=== PATIENT | female | born 1965 | race Caucasian/White ===

== ENCOUNTER → 2018-06-28 08:30 | Outpatient (CLI) | payer OTHER, SELFPAY ==
--- NOTE | 2018-06-28 | DI.RAD.S_ITS ---
PROCEDURE: [place] SHOULDER INJECTION MR/CT RT INDICATIONS: RIGHT SHOULDER ROTATOR CUFF TEAR TECHNIQUE: The indications, alternatives, benefits, risks, and complications of the procedure were explained to the patient. Written informed consent was obtained and placed in the chart. The shoulder was examined fluoroscopically and a site for needle placement chosen for entry into the glenohumeral joint from an anterior approach. The skin was prepped and draped in a sterile fashion, and 1% lidocaine infiltrated from skin down to joint capsule. A spinal needle was inserted into the glenohumeral joint, and a small amount of iodinated contrast media injected to confirm intra-articular placement of the needle tip. This was followed by approximately 12 mL dilute solution of a gadolinium containing MR contrast agent. The needle was removed and a dressing was applied. The patient was given postprocedural instructions and sent to the MR suite for MR imaging. FINDINGS: A single fluoroscopic spot image demonstrates intra-articular location of injected iodinated contrast. IMPRESSION: Successful fluoroscopically guided administration of dilute Gadolinium solution into the shoulder joint for MR arthrogram. Dictated by: Sedrick Reich M.D. on 06/28/2018 at 11:08 Approved by: Sedrick Reich M.D. on 06/28/2018 at 11:08
--- NOTE | 2018-06-28 | DI.MRI.S_ITS ---
PROCEDURE: MR SHOULDER RT W CON INDICATIONS: RIGHT SHOULDER PAIN TECHNIQUE: After the administration of 12 mL of dilute intra-articular Gadolinium contrast, oblique coronal T1 and T2 spin echo with fat saturation, oblique sagittal T1 spin echo with and without fat saturation, oblique sagittal T2 fast spin echo with fat saturation, axial T1 spin echo with fat saturation through the shoulder. COMPARISON: [facility], , [place] SHOULDER INJECTION MR/CT RT, 06/28/2018, 9:03. FINDINGS: Image quality: Excellent. Rotator cuff: There is full-thickness tear of the supraspinatus tendon with contrast extravasation into the subacromial/subdeltoid bursa. The infraspinatus, and subscapularis tendons appear intact throughout. No rotator cuff muscle atrophy on sagittal images. Bones and bursae: No bone marrow contusions or fractures. Mild acromioclavicular joint degeneration. The acromion demonstrates conventional anatomy, without an os acromiale. Capsule and soft tissues: The labrum and glenohumeral ligaments appear intact. The long head of the biceps tendon demonstrates normal location and morphology. The rotator interval appears normal, without fibrosis. The coracohumeral ligament is of normal thickness. No intra-articular bodies. IMPRESSION: 1. Full thickness tear of the supraspinatus tendon. 2. No evidence for labral tear. 3. Mild acromioclavicular joint degeneration. Dictated by: Mahsa Sosa M.D. on 06/28/2018 at 10:29 Approved by: Mahsa Sosa M.D. on 06/28/2018 at 12:33
== END ==
PROVIDERS: Visit Provider Orthopaedic Surgery
DX: M25.511 Pain in right shoulder (principal); M75.121 Complete rotator cuff tear or rupture of right shoulder, not specified as traumatic; M19.011 Primary osteoarthritis, right shoulder
CPT/HCPCS: 23350; 73222; 77002

== ENCOUNTER 2020-08-25 19:14 | Emergency (ER) | payer OTHER, SELFPAY ==
[2020-08-25] VITALS (14 sets, daily range): BP systolic 122–160; BP diastolic 67–80; PULSE 73–83; RESP 14–19; O2SAT 96–100; BMI 24.1
--- NOTE | 2020-08-25 19:22 | DI.RAD.S_ITS ---
PROCEDURE: XR CHEST 1V INDICATIONS: chest pain TECHNIQUE: One view of the chest was acquired. COMPARISON: None. FINDINGS: Surgical changes and devices: None. Lungs and pleura: Lungs are clear. No pleural effusions or pneumothorax. Mediastinum: Mediastinal contours appear normal. Heart size is normal. Bones and chest wall: No suspicious bony lesions. Overlying soft tissues appear unremarkable. IMPRESSION: No evidence acute pulmonary process. Dictated by: Enrrique Escobar M.D. on 08/25/2020 at 19:40 Approved by: Enrrique Escobar M.D. on 08/25/2020 at 19:40
[2020-08-25 19:34] LABS: Add Manual Diff / Slide Review NO; Basophils Absolute Auto 100 /uL (0-100); Basophils Percent Auto 0.7 % (0-2); Eosinophils Absolute Auto 300 /uL (0-450); Eosinophils Percent Auto 3.3 % (2-4); Hematocrit 41.9 % (36-46); Lymphocytes Absolute Auto 2900 /uL (1100-4500); Lymphocytes Percent Auto 29.3 % (25-40); Mean Corpuscular HGB Conc 33.4 % (30-36); Mean Corpuscular Hemoglobin 29.3 PG (26-34); Mean Corpuscular Volume 87.7 fL (80-100); Monocytes Absolute Auto 1100 /uL (0-900); Monocytes Percent Auto 11.2 % (3-14); Neutrophils Absolute Auto 5500 /uL (1500-7000); Neutrophils Percent Auto 55.5 % (50-75); Platelet Count 275 X10^3/uL (150-400); Red Blood Cell Count 4.77 X10^6/uL (4.0-5.2); Red Cell Distribution Width 13.1 % (11.6-14.8); White Blood Cell Count 9.9 X10^3/uL (4.5-11.0)
--- NOTE | 2020-08-25 19:38 | ED.CHESTPAIN ---
HPI - Chest Pain General Chief Complaint: Chest Pain Stated Complaint: fast heart beat, dont feel good Time Seen by Provider: 08/25/20 19:15 Source: patient Mode of arrival: Ambulatory Limitations: no limitations History of Present Illness HPI narrative: 55F non smoker with history of PFO closure a few years ago presents with about 2 weeks of the sensation of rapid heart rate and feeling weird She's also had some episodes of chest tightness that seems to be linked to her increased heart rate. She denies recent travel, exposure to ill persons, new medications or dietary change. She denies fever, chills, nausea or vomiting. She's had no exertional symptoms and denies provocation, palliation, or radiation of the chest tightness. She is having no pain on arrival MD complaint: other Onset (ago): day(s) Duration: intermittent Pain location: substernal Severity: moderate Quality: tightness Pain radiation: none Relieving factors: nothing Exacerbating factors: nothing Treatments prior to arrival chest pain: none Related Data On Oral Contraceptives: No Allergies Allergy/AdvReac Type Severity Reaction Status Date / Time cephalexin [From Keflex] Allergy Verified 08/25/20 19:29 ciprofloxacin [From Cipro] Allergy Verified 08/25/20 19:29 hydromorphone [From Dilaudid] Allergy Verified 08/25/20 19:29 latex Allergy Verified 08/25/20 19:29 Penicillins Allergy Verified 08/25/20 19:29 sulfamethoxazole Allergy Verified 08/25/20 19:29 [From Bactrim] trimethoprim [From Bactrim] Allergy Verified 08/25/20 19:29 Review of Systems Constitutional Constitutional: Denies chills, Denies fatigue, Denies fever(s), Denies frequent falls, Reports lethargy and Denies weakness Eyes Eyes: Denies change in vision, Denies eye discharge, Denies irritation and Denies loss of vision ENT Ears, Nose, Mouth, and Throat: Denies change in voice, Denies dizziness, Denies neck pain, Denies sore throat and Denies throat swelling Cardiovascular Cardiovascular: Reports chest pain, Reports rapid heart rate, Denies irregular heart rhythm, Denies lightheadedness, Denies palpitations, Denies dyspnea, Denies dyspnea on exertion and Denies orthopnea Respiratory Respiratory: Denies cough, Denies dyspnea, Denies dyspnea on exertion and Denies wheezing Gastrointestinal Gastrointestinal: Denies abdominal pain, Denies change in bowel habits, Denies diarrhea, Denies nausea and Denies vomiting Musculoskeletal Musculoskeletal: Denies neck pain and Denies numbness Integumentary/Breasts Skin/Breast: Denies pruritus, Denies erythema, Denies rash and Denies wounds Neurologic Neurologic: Denies behavioral changes, Denies confusion, Denies dizziness, Denies frequent falls, Denies loss of vision, Denies numbness and Denies weakness Psychiatric Psychiatric: Denies anxiety, Denies behavioral changes, Denies confusion, Denies depression, Denies homicidal ideation and Denies suicidal ideation Endocrine Endocrine: Denies fatigue, Denies flushing and Denies palpitations Hematologic/Lymphatic Hematologic/Lymphatic: Denies easy bruising Allergic/Immunologic Allergic/Immunologic: Denies urticaria, Denies throat swelling and Denies wheezing Patient History Social History Smoking Status: Never smoker Smoking Status: Never smoker Substance Use Type: does not use Exam Narrative Exam Narrative: GENERAL: [55] year old patient appears stated age. Well-nourished, well-developed patient, in mild distress. HEAD: Atraumatic. Normocephalic. EYES: Pupils equal round and reactive. Extraocular motions intact. No scleral icterus. No injection or drainage. ENT: Nose without bleeding, purulent drainage. Throat without erythema, tonsillar hypertrophy or exudate. Airway patent. NECK: Trachea midline. Non tender CARDIOVASCULAR: Regular rate and rhythm without murmurs, gallops, or rubs. RESPIRATORY: Clear to auscultation. Breath sounds equal bilaterally. No wheezes, rales, or rhonchi. GASTROINTESTINAL: Abdomen soft, non-tender, nondistended. EXTREMITIES: No edema or joint tenderness. BACK: Nontender without deformity or crepitance. No flank tenderness. NEURO: AOx3. SKIN: No rash or erythema of visible areas Initial Vital Signs Initial Vital Signs: Vital Signs Blood Pressure 160/76 H 08/25/20 19:19 Course Orders Ordered: ED Orders 08/25/20 19:22 XR chest 1V Stat EKG-12 Lead Stat 08/25/20 19:30 Complete Blood Count AUTO DIFF Stat Comprehensive Metabolic Panel Stat D Dimer Stat Free T4, Direct Thyroxine Stat Lipase Stat NT-proBNP (BNP-Adult 18+) Stat Procalcitonin Stat TSH w/ Reflex to FT4 Stat Troponin & CK Cardiac Panel Stat 08/25/20 19:59 CT angio chest PE protocol Stat 08/25/20 21:53 EKG-12 Lead Stat 08/25/20 22:17 Troponin I Stat Discontinued Medications Aspirin (Aspirin 81 Mg Chew Tab) 324 mg PO NOW ONE Stop: 08/25/20 19:22 Last Admin: 08/25/20 19:50 Dose: 324 mg Documented by: LYSSA Sodium Chloride (Normal Saline 0.9%) 1,000 mls @ 150 mls/hr IV CONT STANLEY Last Infusion: 08/25/20 22:02 Dose: 0 mls/hr Documented by: Infusion: 08/25/20 20:59 Dose: 999 mls/hr Documented by: Infusion: 08/25/20 20:15 Dose: 0 mls/hr Documented by: Admin: 08/25/20 19:50 Dose: 150 mls/hr Documented by: LYSSA Potassium Chloride (Potassium Chloride 20 Meq/15 Ml Udc) 40 meq PO NOW ONE Stop: 08/25/20 20:00 Last Admin: 08/25/20 20:10 Dose: 40 meq Documented by: LYSSA Vital Signs Vital signs: Vital Signs - 8 hr 08/25/20 19:19 08/25/20 19:20 08/25/20 19:29 Pulse Rate 83 81 Respiratory Rate 17 18 Blood Pressure 160/76 H 160/76 H Pulse Oximetry 100 100 08/25/20 19:30 08/25/20 19:47 08/25/20 20:00 Pulse Rate 73 73 73 Respiratory Rate 18 14 Blood Pressure 132/76 122/72 Pulse Oximetry 100 100 99 08/25/20 20:41 08/25/20 21:00 08/25/20 21:30 Pulse Rate 80 77 80 Respiratory Rate 18 18 Blood Pressure Pulse Oximetry 96 99 97 08/25/20 22:00 08/25/20 22:04 08/25/20 22:30 Pulse Rate 80 80 77 Respiratory Rate 16 17 14 Blood Pressure 128/75 127/80 Pulse Oximetry 96 98 97 08/25/20 23:00 08/25/20 23:30 Pulse Rate 74 74 Respiratory Rate 14 19 Blood Pressure 125/76 142/67 H Pulse Oximetry 97 97 MDM - Chest Pain Lab Data Result diagrams: 08/25/20 19:30 08/25/20 19:30 Labs: Lab Results 08/25/20 08/25/20 08/25/20 Range/Units 19:30 19:30 19:30 WBC (4.5-11.0) X10^3/uL RBC (4.0-5.2) X10^6/uL Hgb (12.0-16.0) g/dL Hct (36-46) % MCV (80-100) fL MCH (26-34) PG MCHC (30-36) % RDW (11.6-14.8) % Plt Count (150-400) X10^3/uL Neut % (Auto) (50-75) % Lymph % (Auto) (25-40) % [place] % (Auto) (3-14) % Eos % (Auto) (2-4) % Baso % (Auto) (0-2) % Neut # (Auto) (6464-8016) /uL Lymph # (Auto) (1593-8319) /uL [place] # (Auto) (0-900) /uL Eos # (Auto) (0-450) /uL Baso # (Auto) (0-100) /uL D-Dimer 467 H (<230) ng/mL Sodium (137-145) mmol/L Potassium (3.4-5.1) mmol/L Chloride (98-107) mmol/L Carbon Dioxide (22-32) mmol/L BUN (7-17) mg/dL Creatinine (0.52-1.04) mg/dL Estimated GFR (>60) mL/min BUN/Creatinine Ratio (6-22) Glucose (70-100) mg/dL Calcium (8.4-10.2) mg/dL Total Bilirubin (0.2-1.3) mg/dL AST (14-36) IU/L ALT (<35) IU/L Alkaline Phosphatase (38-126) U/L Total Creatine Kinase (30-135) U/L CK-MB (CK-2) CK-MB (CK-2) Rel Index Troponin I (0.01-0.034) ng/mL NT-Pro-B Natriuret Pep 26 (<125) pg/mL Total Protein (6.3-8.2) g/dL Albumin (3.5-5.0) g/dL Globulin (1.7-4.1) g/dL Albumin/Globulin Ratio (1.0-2.8) Lipase (23-300) U/L Procalcitonin < 0.05 (<0.5) ng/mL TSH (0.47-4.68) uIU/mL Free T4 (0.78-2.19) ng/dL 08/25/20 08/25/20 08/25/20 Range/Units 19:30 19:30 19:30 WBC 9.9 (4.5-11.0) X10^3/uL RBC 4.77 (4.0-5.2) X10^6/uL Hgb 14.0 (12.0-16.0) g/dL Hct 41.9 (36-46) % MCV 87.7 (80-100) fL MCH 29.3 (26-34) PG MCHC 33.4 (30-36) % RDW 13.1 (11.6-14.8) % Plt Count 275 (150-400) X10^3/uL Neut % (Auto) 55.5 (50-75) % Lymph % (Auto) 29.3 (25-40) % [place] % (Auto) 11.2 (3-14) % Eos % (Auto) 3.3 (2-4) % Baso % (Auto) 0.7 (0-2) % Neut # (Auto) 5500 (3882-2852) /uL Lymph # (Auto) 2900 (5663-6929) /uL [place] # (Auto) 1100 H (0-900) /uL Eos # (Auto) 300 (0-450) /uL Baso # (Auto) 100 (0-100) /uL D-Dimer (<230) ng/mL Sodium 140 (137-145) mmol/L Potassium 3.2 L (3.4-5.1) mmol/L Chloride 101 (98-107) mmol/L Carbon Dioxide 34 H (22-32) mmol/L BUN 17 (7-17) mg/dL Creatinine 0.95 (0.52-1.04) mg/dL Estimated GFR > 60.0 (>60) mL/min BUN/Creatinine Ratio 17.9 (6-22) Glucose 85 (70-100) mg/dL Calcium 9.2 (8.4-10.2) mg/dL Total Bilirubin 0.3 (0.2-1.3) mg/dL AST 25 (14-36) IU/L ALT 22 (<35) IU/L Alkaline Phosphatase 84 (38-126) U/L Total Creatine Kinase 77 (30-135) U/L CK-MB (CK-2) TNP CK-MB (CK-2) Rel Index TNP Troponin I < 0.012 (0.01-0.034) ng/mL NT-Pro-B Natriuret Pep (<125) pg/mL Total Protein 7.9 (6.3-8.2) g/dL Albumin 4.3 (3.5-5.0) g/dL Globulin 3.6 (1.7-4.1) g/dL Albumin/Globulin Ratio 1.2 (1.0-2.8) Lipase 173 (23-300) U/L Procalcitonin (<0.5) ng/mL TSH 4.99 H (0.47-4.68) uIU/mL Free T4 0.93 (0.78-2.19) ng/dL /28/20 Range/Units 22:17 WBC (4.5-11.0) X10^3/uL RBC (4.0-5.2) X10^6/uL Hgb (12.0-16.0) g/dL Hct (36-46) % MCV (80-100) fL MCH (26-34) PG MCHC (30-36) % RDW (11.6-14.8) % Plt Count (150-400) X10^3/uL Neut % (Auto) (50-75) % Lymph % (Auto) (25-40) % [place] % (Auto) (3-14) % Eos % (Auto) (2-4) % Baso % (Auto) (0-2) % Neut # (Auto) (5225-2546) /uL Lymph # (Auto) (6104-6277) /uL [place] # (Auto) (0-900) /uL Eos # (Auto) (0-450) /uL Baso # (Auto) (0-100) /uL D-Dimer (<230) ng/mL Sodium (137-145) mmol/L Potassium (3.4-5.1) mmol/L Chloride (98-107) mmol/L Carbon Dioxide (22-32) mmol/L BUN (7-17) mg/dL Creatinine (0.52-1.04) mg/dL Estimated GFR (>60) mL/min BUN/Creatinine Ratio (6-22) Glucose (70-100) mg/dL Calcium (8.4-10.2) mg/dL Total Bilirubin (0.2-1.3) mg/dL AST (14-36) IU/L ALT (<35) IU/L Alkaline Phosphatase (38-126) U/L Total Creatine Kinase (30-135) U/L CK-MB (CK-2) CK-MB (CK-2) Rel Index Troponin I < 0.012 (0.01-0.034) ng/mL NT-Pro-B Natriuret Pep (<125) pg/mL Total Protein (6.3-8.2) g/dL Albumin (3.5-5.0) g/dL Globulin (1.7-4.1) g/dL Albumin/Globulin Ratio (1.0-2.8) Lipase (23-300) U/L Procalcitonin (<0.5) ng/mL TSH (0.47-4.68) uIU/mL Free T4 (0.78-2.19) ng/dL ECG Data Interpretation: EKG is normal sinus rhythm rate [72 ] and free of any signs of ischemia or ectopy. No ST segmental elevation or depression. No T wave inversions EKG 2. No change MDM Narrative Medical decision making narrative: Multiple etiologies for patient's symptoms considered including: Arrhythmia such as AFib, thought unlikely given lack of supporting evidence on EKG use or multiple hours of cardiac monitoring. Cardiac ischemia considered but thought unlikely given lack of exertional symptoms, risk factors, ischemia on EKG, multiple negative troponin. Pulmonary embolism considered but thought unlikely given lack of supporting evidence on CT angiogram. Patient feels completely at baseline after above-stated therapies raising the question of mild dehydration and low potassium contributing. Patient's symptoms improved over duration of stay with above-stated therapies. Findings and discharge diagnosis discussed with patient/family followed by verbalization of understanding Return precautions discussed with patient/family whom verbalize understanding. Discharge Plan Departure Patient Disposition: Home Clinical Impression: Atypical chest pain Instructions: DI for Atypical Chest Pain Activity Restrictions/Additional Instructions: *You have been diagnosed with [atypical chest pain and low potassium] *What to do: *Take medications as directed *Follow up with your primary care provider in 2-3 days, call for an appointment. Let them know you were seen in the Emergency Department and that we ask that you be seen in follow up *Return to ER if you should have any new, worsening or concerning symptoms Referrals: [facility] [Outside] [facility] [Outside]
[2020-08-25] MEDS: SODIUM CHLORIDE 0.9% 1,000 ML 150 ML IV (19:50)
[2020-08-25] MEDS: ASPIRIN 81 MG CHEW TAB 324 MG PO (19:50)
[2020-08-25 19:53] LABS: D Dimer 467 ng/mL (<230)
[2020-08-25 19:54] LABS: Alanine Aminotransferase 22 IU/L (<35); Albumin 4.3 g/dL (3.5-5.0); Albumin Globulin Ratio 1.2 (1.0-2.8); Alkaline Phosphatase 84 U/L (38-126); Aspartate Aminotransferase 25 IU/L (14-36); BUN Creatinine Ratio 17.9 (6-22); Bilirubin Total 0.3 mg/dL (0.2-1.3); Blood Urea Nitrogen 17 mg/dL (7-17); Calcium 9.2 mg/dL (8.4-10.2); Carbon Dioxide 34 mmol/L (22-32); Chloride 101 mmol/L (98-107); Creatine Kinase 77 U/L (30-135); Estimated Glomerular Filt Rate > 60.0 mL/min (>60); Globulin 3.6 g/dL (1.7-4.1); Glucose 85 mg/dL (70-100); HEMOLYSIS < 15 (0-50); Lipase 173 U/L (23-300); Potassium 3.2 mmol/L (3.4-5.1); Sodium 140 mmol/L (137-145); Total Protein 7.9 g/dL (6.3-8.2)
--- NOTE | 2020-08-25 19:59 | DI.CT.S_ITS ---
PROCEDURE: CT ANGIO CHEST PE PROTOCOL INDICATIONS: SOB, chest pressure, elevated DDimer TECHNIQUE: After the administration of intravenous contrast, 2 mm thick sections acquired from the pulmonary apices to the posterior costophrenic angles. 3-dimensional maximum intensity projection (MIP) coronal and sagittal reformats were then acquired through the thorax. For radiation dose reduction, the following was used: automated exposure control, adjustment of mA and/or kV according to patient size. COMPARISON: None. FINDINGS: Image quality: Excellent. Pulmonary arteries: Pulmonary arteries are normal in size, and demonstrate no intraluminal filling defects to suggest central pulmonary embolism. Lungs and pleura: Lungs are clear. 3 mm pleural-based nodule, adjacent to major fissure, right lower lobe. No pleural effusions or pneumothorax. Central and peripheral airways are patent. Mediastinum: Heart size is normal, without pericardial effusion. No mediastinal or hilar adenopathy. Thoracic aorta is normal in caliber and enhancement. Esophagus is normal in caliber, without hiatal hernia. Bones and chest wall: No suspicious bony lesions. Ribs and thoracic spine appear intact throughout. Thyroid gland is unremarkable as visualized. No axillary or supraclavicular adenopathy. Abdomen: Visualized upper abdominal solid organs appear normal in the early arterial phase of enhancement. IMPRESSION: 1. No evidence acute pulmonary emboli. 2. No evidence acute pulmonary process. 3. Incidental 3 mm pulmonary nodule, right lung. See chart below for follow-up recommendations. Fleischner Society criteria for SOLID lung nodule followup. Nodule size (mm)Low-risk patientHigh-risk patient<6 (single or multiple)No routine followup.Optional CT at 12 months. 6-8 (single or multiple)CT at 6-12 months, then optional CT at 18-24 mo.CT at 6-12 months, then CT at 18-24 months. >8 (single)CT at 3 months, PET-CT, or biopsy. Same as for low-risk pts. >8 (multiple)CT at 3-6 months, then optional CT at 18-24 mo.CT at 3-6 months, then CT at 18-24 months. Fleischner Society criteria for SUB-SOLID lung nodule followup. Solitary pure ground-glass nodules<6 mm (ground glass or part solid)No followup needed. 6 mm or larger (ground glass)CT at 6-12 months to confirm persistence, then CT every 2 years until 5 years.6 mm or larger (part solid)CT at 3-6 months to confirm persistence, then annual CT until 5 years if unchanged and solid component remains <6 mm. Multiple sub-solid nodules<6 mmCT at 3-6 months, then CT consider at 2 & 4 years for high risk patients. [address] at 3-6 months. Subsequent management based on most suspicious lesions. Recommendations do not apply to lung cancer screening, patients with immunosuppression, or patients with known primary cancer. Dictated by: Enrrique Escobar M.D. on 08/25/2020 at 20:51 Approved by: Enrrique Escobar M.D. on 08/25/2020 at 20:54
[2020-08-25 20:05] LABS: Troponin I < 0.012 ng/mL (0.01-0.034)
[2020-08-25] MEDS: POTASSIUM CHLORIDE 20 MEQ/15 ML UDC 40 MEQ PO (20:10)
[2020-08-25 20:16] LABS: NT-proBNP (BNP-Adult 18+) 26 pg/mL (<125)
[2020-08-25 20:37] LABS: TSH w/ Reflex to FT4 4.99 uIU/mL (0.47-4.68)
[2020-08-25 20:53] LABS: Procalcitonin < 0.05 ng/mL (<0.5)
[2020-08-25 21:15] LABS: Free T4, Direct Thyroxine 0.93 ng/dL (0.78-2.19)
[2020-08-25 22:52] LABS: Troponin I < 0.012 ng/mL (0.01-0.034)
== END 2020-08-25 23:44 | disposition home or self-care (01) ==
PROVIDERS: Emergency Provider Emergency Medicine
DX: R07.89 Other chest pain (principal)
CPT/HCPCS: 36415; 71045; 71275; 80053; 82550; 83690; 83880; 84145; 84439; 84443; 84484; 85025; 85379; 93005; 93010; 96360; 99281; 99284; Q9967

== ENCOUNTER → 2022-03-03 07:26 | Outpatient (CLI) | payer OTHER, SELFPAY ==
--- NOTE | 2022-03-03 | DI.CT.S_ITS ---
PROCEDURE: CT SINUS SCREEN WO CON INDICATIONS: FACIAL PAIN/HEADACHES/PANSINUSITIS TECHNIQUE: Noncontrast 3.0 mm axial images acquired from the frontal sinuses to the mid-sella, with coronal and sagittal reformats. For radiation dose reduction, the following was used: automated exposure control, adjustment of mA and/or kV according to patient size. COMPARISON: None. FINDINGS: Image quality: Excellent. Maxillary Sinuses: Postoperative change of the anterior [place] of the maxillary sinuses can be seen. Minimal mucosal thickening is seen within the inferior maxillary sinuses. Ethmoid Air Cells: No bony remodeling or destruction. Sinuses are clear. Sphenoid Sinuses: No bony remodeling or destruction. Sinuses are clear. Frontal Sinuses: No bony remodeling or destruction. Sinuses are clear. Ostiomeatal Complexes: Ostiomeatal complexes are patent. No Lia cells. Miscellaneous: Visualized intra-orbital contents are normal. No mary bullosa or paradoxical turbinate curvature. There is at least moderate rightward nasal septal deviation. Mandible reconstruction change is partially seen. Focal TMJ degenerative change can be seen. IMPRESSION: Minimal maxillary sinus mucosal thickening. Prior postoperative change, with plate and screw fixation of the anterior maxillary sinuses and partially visualized mandible reconstruction change. At least moderate rightward nasal septal deviation. Focal temporomandibular joint degenerative change can be seen. If clinically appropriate, please consider a follow-up dedicated TMJ protocol MRI with closed mouth and open mouth views (assuming that there is no contraindication). Dictated by: Abraham Mcguire M.D. on 03/03/2022 at 8:21 Approved by: Abraham Mcguire M.D. on 03/03/2022 at 8:23
== END ==
PROVIDERS: PCP Physician Assistant; Referring Provider Otolaryngology; Visit Provider Otolaryngology
DX: J32.4 Chronic pansinusitis (principal); G44.89 Other headache syndrome; J34.2 Deviated nasal septum
CPT/HCPCS: 70486

== ENCOUNTER → 2022-07-23 07:05 | Outpatient (CLI) | payer OTHER, SELFPAY ==
[2022-07-23 07:58] LABS: Add Manual Diff / Slide Review NO; Basophils Absolute Auto 100 /uL (0-100); Eosinophils Absolute Auto 300 /uL (0-450); Eosinophils Percent Auto 3.5 % (2-4); Hematocrit 36.2 % (36-46); Hemoglobin 11.8 g/dL (12.0-16.0); Lymphocytes Absolute Auto 3300 /uL (1100-4500); Lymphocytes Percent Auto 37.3 % (25-40); Mean Corpuscular HGB Conc 32.5 % (30-36); Mean Corpuscular Hemoglobin 24.6 PG (26-34); Mean Corpuscular Volume 75.6 fL (80-100); Monocytes Absolute Auto 1200 /uL (0-900); Monocytes Percent Auto 13.2 % (3-14); Neutrophils Absolute Auto 4000 /uL (1500-7000); Platelet Count 263 X10^3/uL (150-400); Red Blood Cell Count 4.79 X10^6/uL (4.0-5.2); Red Cell Distribution Width 15.6 % (11.6-14.8)
[2022-07-23 08:28] LABS: Alanine Aminotransferase 21 IU/L (<35); Albumin 3.8 g/dL (3.5-5.0); Albumin Globulin Ratio 1.2 (1.0-2.8); Alkaline Phosphatase 85 U/L (38-126); Amylase 89 U/L (30-110); Aspartate Aminotransferase 18 IU/L (14-36); BUN Creatinine Ratio 16.3 (6-22); Bilirubin Total 0.3 mg/dL (0.2-1.3); Blood Urea Nitrogen 17 mg/dL (7-17); Calcium 8.8 mg/dL (8.4-10.2); Carbon Dioxide 31 mmol/L (22-32); Chloride 99 mmol/L (98-107); Cholesterol 191 mg/dL (140-199); Estimated Glomerular Filt Rate > 60 mL/min (>60); Globulin 3.3 g/dL (1.7-4.1); Glucose 76 mg/dL (70-100); HDL Cholesterol 65 mg/dL (40-60); HEMOLYSIS < 15 (0-50); Iron 38 ug/dL (37-170); LDL Cholesterol Calculated 103 mg/dL (<100); Lipase 312 U/L (23-300); Potassium 3.5 mmol/L (3.4-5.1); Sodium 138 mmol/L (137-145); Total Protein 7.1 g/dL (6.3-8.2); Triglycerides 117 mg/dL (35-150)
[2022-07-23 08:39] LABS: Percent Iron Saturation 10 % (15-50); Total Iron Binding Capacity 392 ug/dL (265-497); Transferrin 276 mg/dL (206-381)
[2022-07-23 09:01] LABS: TSH w/ Reflex to FT4 4.59 uIU/mL (0.47-4.68)
[2022-07-23 09:04] LABS: Ferritin 5 ng/mL (11-264)
[2022-07-23 09:36] LABS: Folate 17.9 ng/mL (2.76-20.0); Vitamin B12 704 pg/mL (239-931)
== END ==
PROVIDERS: PCP Family Medicine; Referring Provider Family Medicine; Visit Provider Family Medicine
DX: R10.11 Right upper quadrant pain (principal); R19.5 Other fecal abnormalities; K21.9 Gastro-esophageal reflux disease without esophagitis; E56.9 Vitamin deficiency, unspecified; Z13.220 Encounter for screening for lipoid disorders; Z13.0 Encounter for screening for diseases of the blood and blood-forming organs and certain disorders involving the immune mechanism; E61.1 Iron deficiency; D64.9 Anemia, unspecified; Z13.29 Encounter for screening for other suspected endocrine disorder
CPT/HCPCS: 36415; 80053; 80061; 82150; 82306; 82607; 82728; 82746; 83540; 83550; 83690; 84443; 85025

== ENCOUNTER → 2022-08-04 09:20 | Outpatient (CLI) | payer OTHER, SELFPAY ==
--- NOTE | 2022-08-04 | DI.MG.S_ITS ---
BILATERAL DIGITAL SCREENING MAMMOGRAM 3D/2D WITH CAD: 08/04/2022 CLINICAL: Routine screening. Family history of breast cancer. Comparison is made to exams dated: 07/29/2021 mammogram, 07/23/2020 mammogram, 07/14/2019 mammogram, and 06/22/2018 mammogram - [facility]. Both breasts are heterogeneously dense, which may obscure small masses (category c / 51-75% glandular tissue). Current study was also evaluated with a Computer Aided Detection (CAD) system. There are benign post operative findings in the left breast. No significant masses, calcifications, or other findings are seen in either breast. There has been no significant interval change. IMPRESSION: BENIGN There is no mammographic evidence of malignancy. A 1 year screening mammogram is recommended. Based on Tyrer-Cuzick model (a risk assessment model), the patient's lifetime risk is 30.8% and her 10 year risk is 10.4%. If a patient has an elevated risk, a more comprehensive evaluation should be considered and/or a referral to a genetic counselor. The [place] [employer], [place] [employer], and NCCN Guidelines advise the consideration of Breast MRI as an adjunct to screening mammography in patients whose Lifetime risk to develop breast cancer is 20% or higher. This exam was interpreted at Station ID: [id number]. NOTE: For mammograms, a report in lay terms will be sent to the patient. Approximately 15% of breast malignancies will not be visualized mammographically. In the management of a palpable breast mass, a negative mammogram must not discourage biopsy of a clinically suspicious lesion. Electronically Signed By: Faizan henson/katie:08/04/2022 14:24:08 letter sent: Normal Exam ACR BI-RADS Category 2: Benign Finding(s) 3342F
== END ==
PROVIDERS: PCP Family Medicine; Referring Provider Family Medicine; Visit Provider Family Medicine
DX: Z12.31 Encounter for screening mammogram for malignant neoplasm of breast (principal); Z80.3 Family history of malignant neoplasm of breast
CPT/HCPCS: 77063; 77067

== ENCOUNTER → 2022-10-01 08:02 | Outpatient (CLI) | payer OTHER, SELFPAY ==
[2022-10-01 08:41] LABS: Add Manual Diff / Slide Review NO; Basophils Absolute Auto 100 /uL (0-100); Basophils Percent Auto 1.3 % (0-2); Eosinophils Absolute Auto 400 /uL (0-450); Eosinophils Percent Auto 6.3 % (2-4); Hematocrit 39.3 % (36-46); Hemoglobin 12.6 g/dL (12.0-16.0); Lymphocytes Absolute Auto 1600 /uL (1100-4500); Mean Corpuscular HGB Conc 32.1 % (30-36); Mean Corpuscular Hemoglobin 25.8 PG (26-34); Mean Corpuscular Volume 80.4 fL (80-100); Monocytes Absolute Auto 600 /uL (0-900); Monocytes Percent Auto 10.1 % (3-14); Neutrophils Absolute Auto 3200 /uL (1500-7000); Neutrophils Percent Auto 54.3 % (50-75); Platelet Count 299 X10^3/uL (150-400); Red Cell Distribution Width 17.6 % (11.6-14.8); White Blood Cell Count 5.8 X10^3/uL (4.5-11.0)
[2022-10-01 09:52] LABS: Ferritin 7 ng/mL (11-264)
== END ==
PROVIDERS: PCP Family Medicine; Referring Provider Family Medicine; Visit Provider Family Medicine
DX: D50.8 Other iron deficiency anemias (principal)
CPT/HCPCS: 36415; 82728; 85025

== ENCOUNTER → 2022-11-14 07:58 | Outpatient (CLI) | payer OTHER, SELFPAY ==
[2022-11-14 08:34] LABS: Add Manual Diff / Slide Review NO; Basophils Absolute Auto 100 /uL (0-100); Basophils Percent Auto 1.3 % (0-2); Eosinophils Absolute Auto 300 /uL (0-450); Eosinophils Percent Auto 5.2 % (2-4); Hematocrit 38.9 % (36-46); Hemoglobin 12.8 g/dL (12.0-16.0); Lymphocytes Absolute Auto 1500 /uL (1100-4500); Lymphocytes Percent Auto 29.7 % (25-40); Mean Corpuscular HGB Conc 32.9 % (30-36); Mean Corpuscular Hemoglobin 26.8 PG (26-34); Mean Corpuscular Volume 81.5 fL (80-100); Monocytes Absolute Auto 600 /uL (0-900); Monocytes Percent Auto 12.4 % (3-14); Neutrophils Absolute Auto 2500 /uL (1500-7000); Neutrophils Percent Auto 51.4 % (50-75); Platelet Count 259 X10^3/uL (150-400); Red Blood Cell Count 4.77 X10^6/uL (4.0-5.2); White Blood Cell Count 4.9 X10^3/uL (4.5-11.0)
[2022-11-14 08:56] LABS: Alanine Aminotransferase 17 IU/L (<35); Albumin Globulin Ratio 1.3 (1.0-2.8); Alkaline Phosphatase 80 U/L (38-126); Aspartate Aminotransferase 21 IU/L (14-36); BUN Creatinine Ratio 17.3 (6-22); Bilirubin Total 0.4 mg/dL (0.2-1.3); Blood Urea Nitrogen 17 mg/dL (7-17); Calcium 9.1 mg/dL (8.4-10.2); Carbon Dioxide 30 mmol/L (22-32); Chloride 100 mmol/L (98-107); Estimated Glomerular Filt Rate > 60 mL/min (>60); Globulin 3.2 g/dL (1.7-4.1); Glucose 81 mg/dL (70-100); HEMOLYSIS < 15 (0-50); Potassium 4.1 mmol/L (3.4-5.1); Sodium 137 mmol/L (137-145); Total Protein 7.2 g/dL (6.3-8.2)
== END ==
PROVIDERS: PCP Family Medicine; Referring Provider Internal Medicine Gastroenterology; Visit Provider Internal Medicine Gastroenterology
DX: D50.0 Iron deficiency anemia secondary to blood loss (chronic) (principal)
CPT/HCPCS: 36415; 80053; 85025

== ENCOUNTER 2023-01-26 15:53 | Emergency (ER) | payer OTHER, SELFPAY ==
--- NOTE | 2023-01-26 16:01 | DI.RAD.S_ITS ---
PROCEDURE: XR CHEST 1V INDICATIONS: chest pain TECHNIQUE: One view of the chest was acquired. COMPARISON: CT, CT ANGIO CHEST PE PROTOCOL, 08/25/2020, 20:24. [facility], CR, XR CHEST 1V, 08/25/2020, 19:24. FINDINGS: Surgical changes and devices: None. Lungs and pleura: Lungs are clear. No pleural effusions or pneumothorax. Mediastinum: Mediastinal contours appear normal. Heart size is normal. Bones and chest wall: No suspicious bony lesions. Overlying soft tissues appear unremarkable. IMPRESSION: No acute cardiopulmonary disease. Dictated by: Mahsa Sosa M.D. on 01/26/2023 at 16:27 Approved by: Mahsa Sosa M.D. on 01/26/2023 at 16:28
[2023-01-26 16:02] VITALS: BP 103/73; PULSE 80; RESP 17; TEMP 36.6; O2SAT 100; BMI 24.7
[2023-01-26 16:24] LABS: Add Manual Diff / Slide Review NO; Basophils Absolute Auto 100 /uL (0-100); Basophils Percent Auto 1.2 % (0-2); Eosinophils Absolute Auto 200 /uL (0-450); Eosinophils Percent Auto 2.4 % (2-4); Hematocrit 36.1 % (36-46); Hemoglobin 11.9 g/dL (12.0-16.0); Lymphocytes Absolute Auto 3000 /uL (1100-4500); Lymphocytes Percent Auto 31.9 % (25-40); Mean Corpuscular Hemoglobin 27.4 PG (26-34); Monocytes Absolute Auto 800 /uL (0-900); Neutrophils Absolute Auto 5400 /uL (1500-7000); Neutrophils Percent Auto 56.5 % (50-75); Platelet Count 294 X10^3/uL (150-400); Red Blood Cell Count 4.36 X10^6/uL (4.0-5.2); Red Cell Distribution Width 14.1 % (11.6-14.8); White Blood Cell Count 9.5 X10^3/uL (4.5-11.0)
[2023-01-26 16:34] LABS: PTT Partial Thromboplastin Tim 25 SECONDS (26-36)
[2023-01-26 16:40] LABS: Alanine Aminotransferase 18 IU/L (<35); Albumin 4.4 g/dL (3.5-5.0); Albumin Globulin Ratio 1.3 (1.0-2.8); Alkaline Phosphatase 95 U/L (38-126); Aspartate Aminotransferase 21 IU/L (14-36); BUN Creatinine Ratio 14.9 (6-22); Bilirubin Total 0.3 mg/dL (0.2-1.3); Blood Urea Nitrogen 18 mg/dL (7-17); Calcium 9.1 mg/dL (8.4-10.2); Carbon Dioxide 22 mmol/L (22-32); Chloride 106 mmol/L (98-107); Creatine Kinase 61 U/L (30-135); Estimated Glomerular Filt Rate 53 mL/min (>60); Globulin 3.5 g/dL (1.7-4.1); Glucose 103 mg/dL (70-100); HEMOLYSIS < 15 (0-50); Lipase 125 U/L (23-300); Magnesium 2.4 mg/dL (1.6-2.3); Potassium 3.6 mmol/L (3.4-5.1); Sodium 137 mmol/L (137-145); Total Protein 7.9 g/dL (6.3-8.2)
--- NOTE | 2023-01-26 16:45 | ED_ITS ---
HPI - Nausea/Vomiting/Diarrhea General Chief complaint: Nausea/Vomiting/Diarrhea Stated complaint: cough, chest tightness, syncope Time Seen by Provider: 01/26/23 16:17 Source: patient Mode of arrival: Wheelchair Limitations: no limitations History of Present Illness HPI Narrative: 57-year-old female. Not on anticoagulation. Was sent over from the walk-in clinic for evaluation of what sounds like a presyncopal episode. The patient went to the walk-in clinic because she states she just has not felt very well for the past week. She is had fatigue and a cough and chest tightness. She stated that while she was at the walk-in clinic she started to really not feel very well. Was somewhat lightheaded. No chest pain or shortness of breath or headache. She was told that she needed to lay down and her symptoms did not improve. At some point during this she did have an episode of diarrhea. Her has had a diarrheal illness for the past couple weeks although she has not had any until today. At the time of my evaluation she states she feels much better. Related Data Home Medications Medication Instructions Recorded Confirmed No Known Home Medications 01/26/23 01/26/23 Allergies Allergy/AdvReac Type Severity Reaction Status Date / Time cephalexin [From Keflex] Allergy Verified 01/26/23 15:27 ciprofloxacin [From Cipro] Allergy Verified 01/26/23 15:27 hydromorphone [From Dilaudid] Allergy Verified 01/26/23 15:27 latex Allergy Verified 01/26/23 15:27 Penicillins Allergy Verified 01/26/23 15:27 sulfamethoxazole Allergy Verified 01/26/23 15:27 [From Bactrim] trimethoprim [From Bactrim] Allergy Verified 01/26/23 15:27 Patient History Social History Smoking Status: Never smoker Smoking Status: Never smoker alcohol intake frequency: other Substance Use Type: does not use Exam Initial Vital Signs Initial Vital Signs: Vital Signs Temperature 98 F 01/26/23 16:02 Pulse Rate 80 01/26/23 16:02 Respiratory Rate 17 01/26/23 16:02 Blood Pressure 103/73 01/26/23 16:02 Pulse Oximetry 100 01/26/23 16:02 Oxygen Delivery Method Room Air 01/26/23 16:02 Const General: cooperative, comfortable and No ill appearing [facility] Head: normal to inspection and normocephalic Resp Effort & Inspection: normal respiratory effort Auscultation: clear to auscultation bilaterally Cardio Rate: regular rate Rhythm: regular rhythm Skin General: no rashes or lesions noted Neuro General: patient alert, patient awake and moves all extremities Extrem General: normal to inspection and capillary refill normal Course Orders Ordered: ED Orders 01/26/23 16:01 XR chest 1V Stat EKG-12 Lead Stat 01/26/23 16:10 Complete Blood Count AUTO DIFF Stat Comprehensive Metabolic Panel Stat Lipase Stat Magnesium Stat PTT Partial Thromboplastin Everardo Stat Prothrombin Time INR Stat Troponin & CK Cardiac Panel Stat 01/26/23 16:11 Respiratory Panel (Film Array) Stat 01/26/23 17:37 Ictotest Urine Stat Urine Microscopic Stat Discontinued Medications Sodium Chloride (Normal Saline 0.9%) 1,000 mls @ 1,000 mls/hr IV BOLUS ONE Stop: 01/26/23 17:00 Last Infusion: 01/26/23 17:39 Dose: 0 mls/hr Documented By: Admin: 01/26/23 16:47 Dose: 1,000 mls/hr Documented By: JUDY Vital Signs Vital signs: Vital Signs - 8 hr 01/26/23 16:02 01/26/23 17:15 Temperature 98 F Pulse Rate 80 72 Respiratory Rate 17 17 Blood Pressure 103/73 123/60 Pulse Oximetry 100 99 Oxygen Delivery Method Room Air Room Air MDM - Nausea/Vomiting/Diarrhea Lab Data Attestation: I reviewed the patient's lab results. 01/26/23 16:10 01/26/23 16:10 Labs: Lab Results 01/26/23 01/26/23 01/26/23 Range/Units 16:10 16:10 16:10 WBC 9.5 (4.5-11.0) X10^3/uL RBC 4.36 (4.0-5.2) X10^6/uL Hgb 11.9 L (12.0-16.0) g/dL Hct 36.1 (36-46) % MCV 83.0 (80-100) fL MCH 27.4 (26-34) PG MCHC 33.0 (30-36) % RDW 14.1 (11.6-14.8) % Plt Count 294 (150-400) X10^3/uL Neut % (Auto) 56.5 (50-75) % Lymph % (Auto) 31.9 (25-40) % [place] % (Auto) 8.0 (3-14) % Eos % (Auto) 2.4 (2-4) % Baso % (Auto) 1.2 (0-2) % Neut # (Auto) 5400 (1918-8791) /uL Lymph # (Auto) 3000 (5271-7959) /uL [place] # (Auto) 800 (0-900) /uL Eos # (Auto) 200 (0-450) /uL Baso # (Auto) 100 (0-100) /uL PT 12.0 (10.1-12.7) SECONDS INR 1.0 (0.9-1.3) APTT 25 L (26-36) SECONDS Sodium 137 (137-145) mmol/L Potassium 3.6 (3.4-5.1) mmol/L Chloride 106 (98-107) mmol/L Carbon Dioxide 22 (22-32) mmol/L BUN 18 H (7-17) mg/dL Creatinine 1.21 H (0.52-1.04) mg/dL Estimated GFR 53 L (>60) mL/min BUN/Creatinine Ratio 14.9 (6-22) Glucose 103 H (70-100) mg/dL Calcium 9.1 (8.4-10.2) mg/dL Magnesium 2.4 H (1.6-2.3) mg/dL Total Bilirubin 0.3 (0.2-1.3) mg/dL AST 21 (14-36) IU/L ALT 18 (<35) IU/L Alkaline Phosphatase 95 (38-126) U/L Total Creatine Kinase 61 (30-135) U/L CK-MB (CK-2) TNP CK-MB (CK-2) Rel Index TNP Troponin I < 0.012 (0.01-0.034) ng/mL Total Protein 7.9 (6.3-8.2) g/dL Albumin 4.4 (3.5-5.0) g/dL Globulin 3.5 (1.7-4.1) g/dL Albumin/Globulin Ratio 1.3 (1.0-2.8) Lipase 125 (23-300) U/L Chlamy pneumoniae PCR (Not Detect) Adenovirus (PCR) (Not Detect) B. pertussis DNA (PCR) (Not Detecte) B.parapertussis DNA PCR (Not Detecte) Coronavirus OC43 (PCR) (Not Detect) Coronavirus HKU1 (PCR) (Not Detect) Coronavirus 229E (PCR) (Not Detect) SARS-CoV-2 (PCR) (Not Detecte) Coronavirus NL63 (PCR) (Not Detect) Human Metapneumovir PCR (Not Detect) Influenza Type A (PCR) (Not Detect) Influenza Type B (PCR) (Not Detect) M. pneumoniae (PCR) (Not Detect) Parainfluenza 1 (PCR) (Not Detect) Parainfluenza 2 (PCR) (Not Detect) Parainfluenza 3 (PCR) (Not Detect) Parainfluenza 4 (PCR) (Not Detect) RSV (PCR) (Not Detect) Entero/Rhino (PCR) (Not Detect) 01/26/23 Range/Units 16:11 WBC (4.5-11.0) X10^3/uL RBC (4.0-5.2) X10^6/uL Hgb (12.0-16.0) g/dL Hct (36-46) % MCV (80-100) fL MCH (26-34) PG MCHC (30-36) % RDW (11.6-14.8) % Plt Count (150-400) X10^3/uL Neut % (Auto) (50-75) % Lymph % (Auto) (25-40) % [place] % (Auto) (3-14) % Eos % (Auto) (2-4) % Baso % (Auto) (0-2) % Neut # (Auto) (3438-3186) /uL Lymph # (Auto) (4290-3632) /uL [place] # (Auto) (0-900) /uL Eos # (Auto) (0-450) /uL Baso # (Auto) (0-100) /uL PT (10.1-12.7) SECONDS INR (0.9-1.3) APTT (26-36) SECONDS Sodium (137-145) mmol/L Potassium (3.4-5.1) mmol/L Chloride (98-107) mmol/L Carbon Dioxide (22-32) mmol/L BUN (7-17) mg/dL Creatinine (0.52-1.04) mg/dL Estimated GFR (>60) mL/min BUN/Creatinine Ratio (6-22) Glucose (70-100) mg/dL Calcium (8.4-10.2) mg/dL Magnesium (1.6-2.3) mg/dL Total Bilirubin (0.2-1.3) mg/dL AST (14-36) IU/L ALT (<35) IU/L Alkaline Phosphatase (38-126) U/L Total Creatine Kinase (30-135) U/L CK-MB (CK-2) CK-MB (CK-2) Rel Index Troponin I (0.01-0.034) ng/mL Total Protein (6.3-8.2) g/dL Albumin (3.5-5.0) g/dL Globulin (1.7-4.1) g/dL Albumin/Globulin Ratio (1.0-2.8) Lipase (23-300) U/L Chlamy pneumoniae PCR Not detected (Not Detect) Adenovirus (PCR) Not detected (Not Detect) B. pertussis DNA (PCR) Not detected (Not Detecte) B.parapertussis DNA PCR Not detected (Not Detecte) Coronavirus OC43 (PCR) Not detected (Not Detect) Coronavirus HKU1 (PCR) Not detected (Not Detect) Coronavirus 229E (PCR) Not detected (Not Detect) SARS-CoV-2 (PCR) Not detected (Not Detecte) Coronavirus NL63 (PCR) Not detected (Not Detect) Human Metapneumovir PCR Not detected (Not Detect) Influenza Type A (PCR) Not detected (Not Detect) Influenza Type B (PCR) Not detected (Not Detect) M. pneumoniae (PCR) Not detected (Not Detect) Parainfluenza 1 (PCR) Not detected (Not Detect) Parainfluenza 2 (PCR) Not detected (Not Detect) Parainfluenza 3 (PCR) Not detected (Not Detect) Parainfluenza 4 (PCR) Not detected (Not Detect) RSV (PCR) Not detected (Not Detect) Entero/Rhino (PCR) Detected H (Not Detect) Urine Dip Bedside Urine Glucose Negative Bedside Urine Bilirubin ++ 2 Bedside Urine Ketone - Negative Urine Specific [place] 1.025 Bedside Urine Occult Blood +/- Bedside Urine pH 6.0 Bedside Urine Protein +/- 15 Bedside Urine Urobilinogen - Negative Bedside Urine Nitrite - Negative Bedside Urine Leukocytes - Negative Esterase ECG Data Attestation: I personally reviewed and interpreted this ECG as follows: Interpretation: Sinus rhythm Ventricular rate is 66 Normal axis Normal QRS Normal QTC No ST T wave changes MDM Narrative Medical decision making narrative: Patient states she does feel better after the fluids. She is positive for rhino virus and this does explain the symptoms that she is had for the past couple days. There was no indication for any antibiotics. She did have 1 episode of diarrhea over the walk-in clinic and I suspect that this is what was causing her to have this described presyncopal episode. Her has had a diarrheal illness over the past couple days. Did discuss this as well. Will discharge patient home. She is not having any nausea. She was given return precautions. She expressed understanding and agreement with plan. Discharge Plan Departure Patient Disposition: Home Clinical Impression: Rhinovirus Instructions: Diarrhea, DI for Viral Upper Respiratory Infection -- Adult Activity Restrictions/Additional Instructions: Recommend that you continue to take all of your medications as directed. Be sure that you were increasing your fluid intake. Return to the emergency department for any new or worsening symptoms. Prescriptions: No Action No Known Home Medications Referrals: Bailey Gonzales ARNP [Primary Care Provider] - Stand Alone Forms: Patient Portal/API
[2023-01-26] MEDS: SODIUM CHLORIDE 0.9% 1,000 ML 1000 ML IV (16:47)
[2023-01-26 16:51] LABS: Troponin I < 0.012 ng/mL (0.01-0.034)
[2023-01-26 17:15] VITALS: BP 123/60; PULSE 72; RESP 17; O2SAT 99
[2023-01-26 17:23] LABS: Adenovirus Not Detected (Not Detect); B. parapertussis Not Detected (Not Detecte); Bordetella pertussis Not Detected (Not Detecte); Chlamydophila pneumoniae Not Detected (Not Detect); Coronavirus 229E Not Detected (Not Detect); Coronavirus HKU1 Not Detected (Not Detect); Coronavirus NL 63 Not Detected (Not Detect); Coronavirus OC43 Not Detected (Not Detect); Human Metapneumovirus Not Detected (Not Detect); Human Rhinovirus/Enterovirus Detected (Not Detect); Influenza A Not Detected (Not Detect); Influenza B Not Detected (Not Detect); Mycoplasma pneumoniae Not Detected (Not Detect); Parainfluenza Virus 1 Not Detected (Not Detect); Parainfluenza Virus 2 Not Detected (Not Detect); Parainfluenza Virus 3 Not Detected (Not Detect); Parainfluenza Virus 4 Not Detected (Not Detect); Respiratory Syncytial Virus Not Detected (Not Detect); SARS- CoV-2 Not Detected (Not Detecte)
[2023-01-26 18:09] LABS: Ictotest Urine Negative (Negative)
[2023-01-26 18:14] LABS: Bacteria Urine Few (2-10); Culture Indicated Urine Cult Not Indicated; RBC Urine 5-10/HPF (0-5/HPF); Squamous Epithelial Cell Urine 1-5 /HPF (0-5/HPF); WBC Urine 1-5/HPF (0-5/HPF)
[2023-01-26 18:42] VITALS: BP 122/65; PULSE 77; RESP 16; O2SAT 99
== END 2023-01-26 18:42 | disposition home or self-care (01) ==
PROVIDERS: Emergency Provider Emergency Medicine; Family Provider Family Medicine; PCP Family Medicine
DX: J06.9 Acute upper respiratory infection, unspecified (principal); B34.8 Other viral infections of unspecified site; R05.9 Cough, unspecified; R07.9 Chest pain, unspecified; Z20.822 Contact with and (suspected) exposure to COVID-19
CPT/HCPCS: 36415; 71045; 80053; 81003; 81015; 82550; 83690; 83735; 84484; 85025; 85610; 85730; 87633; 93005; 99284

== ENCOUNTER 2023-01-29 10:16 | Emergency (ER) | payer OTHER, SELFPAY ==
[2023-01-29] VITALS (10 sets, daily range): BP systolic 109–140; BP diastolic 58–84; PULSE 58–79; RESP 16–26; TEMP 36.4; O2SAT 97–100; BMI 24.7
--- NOTE | 2023-01-29 10:27 | ED.GENADULT ---
HPI - General Adult General Chief complaint: Shortness of Breath/Dyspnea Stated complaint: Sent by [facility] SOB/chest pain Time Seen by Provider: 01/29/23 10:19 Source: patient Mode of arrival: Wheelchair History of Present Illness HPI narrative: Patient is a 57-year-old female who was seen here several days ago. Diagnosed with the respiratory virus. She was sent over from the walk-in clinic after having an episode of diarrhea and what was most likely a syncopal episode from this. She states that since she was here in the emergency department her cough has worsened. She is having some chest tightness and shortness of breath. Nonproductive cough. Had diarrhea up until yesterday. Went to the walk-in clinic this morning and sent back to the emergency department for further evaluation. Related Data Previous Rx's Medication Instructions Recorded benzonatate 100 mg capsule 100 mg PO BID-TID PRN cough #12 01/29/23 caps Allergies Allergy/AdvReac Type Severity Reaction Status Date / Time cephalexin [From Keflex] Allergy Verified 01/29/23 10:27 ciprofloxacin [From Cipro] Allergy Verified 01/29/23 10:27 hydromorphone [From Dilaudid] Allergy Verified 01/29/23 10:27 latex Allergy Verified 01/29/23 10:27 Penicillins Allergy Verified 01/29/23 10:27 sulfamethoxazole Allergy Verified 01/29/23 10:27 [From Bactrim] trimethoprim [From Bactrim] Allergy Verified 01/29/23 10:27 Review of Systems Review of Systems ROS Unobtainable: All systems reviewed & are unremarkable except as noted in HPI and below Patient History Social History Smoking Status: Never smoker Smoking Status: Never smoker alcohol intake frequency: other Substance Use Type: does not use Exam Initial Vital Signs Initial Vital Signs: Vital Signs Temperature 97.5 F L 01/29/23 10:24 Pulse Rate 67 01/29/23 10:24 Respiratory Rate 16 01/29/23 10:24 Blood Pressure 140/84 01/29/23 10:24 Pulse Oximetry 100 01/29/23 10:24 Oxygen Delivery Method Room Air 01/29/23 10:24 Const General: cooperative, comfortable and No ill appearing HENMT Head: normal to inspection and normocephalic Resp Effort & Inspection: normal respiratory effort Auscultation: clear to auscultation bilaterally Cardio Rate: regular rate Rhythm: regular rhythm GI Inspection: normal to inspection and non-distended Skin General: no rashes or lesions noted Neuro General: patient alert, patient awake, patient oriented x3 and moves all extremities Extrem General: No edema Course Orders Ordered: ED Orders 01/29/23 10:29 XR chest 1V Stat 01/29/23 10:40 Complete Blood Count AUTO DIFF Stat Comprehensive Metabolic Panel Stat D Dimer Stat Lipase Stat Troponin & CK Cardiac Panel Stat EKG-12 Lead Stat 01/29/23 12:43 Urine Microscopic Stat Vital Signs Vital signs: Vital Signs - 8 hr 01/29/23 10:54 01/29/23 10:58 01/29/23 10:58 Pulse Rate 67 64 Respiratory Rate 20 22 Blood Pressure 112/58 L Pulse Oximetry 97 100 01/29/23 11:00 01/29/23 11:00 01/29/23 11:30 Pulse Rate 59 L Respiratory Rate 18 Blood Pressure 109/72 109/72 Pulse Oximetry 99 01/29/23 11:30 01/29/23 12:00 01/29/23 12:00 Pulse Rate 60 58 L Respiratory Rate 16 22 Blood Pressure 111/69 Pulse Oximetry 100 99 01/29/23 12:30 01/29/23 12:44 01/29/23 12:44 Pulse Rate 59 L 79 Respiratory Rate 26 H Blood Pressure 114/71 Pulse Oximetry 99 98 01/29/23 13:00 01/29/23 13:00 01/29/23 13:30 Pulse Rate 61 Respiratory Rate 18 Blood Pressure 116/76 120/77 Pulse Oximetry 100 01/29/23 13:30 Pulse Rate 62 Respiratory Rate 24 Blood Pressure Pulse Oximetry 100 Medical Decision Making Lab Data Lab results reviewed: Yes I reviewed the patient's lab results. 01/29/23 10:40 01/29/23 10:40 Labs: Lab Results 01/29/23 01/29/23 01/29/23 Range/Units 10:40 10:40 10:40 WBC 6.7 (4.5-11.0) X10^3/uL RBC 4.39 (4.0-5.2) X10^6/uL Hgb 12.1 (12.0-16.0) g/dL Hct 35.8 L (36-46) % MCV 81.6 (80-100) fL MCH 27.5 (26-34) PG MCHC 33.7 (30-36) % RDW 13.9 (11.6-14.8) % Plt Count 340 (150-400) X10^3/uL Neut % (Auto) 54.7 (50-75) % Lymph % (Auto) 31.4 (25-40) % [place] % (Auto) 9.6 (3-14) % Eos % (Auto) 3.1 (2-4) % Baso % (Auto) 1.2 (0-2) % Neut # (Auto) 3700 (0893-2184) /uL Lymph # (Auto) 2100 (0687-5394) /uL [place] # (Auto) 600 (0-900) /uL Eos # (Auto) 200 (0-450) /uL Baso # (Auto) 100 (0-100) /uL D-Dimer 397 (<500) ng/ml Sodium 138 (137-145) mmol/L Potassium 3.5 (3.4-5.1) mmol/L Chloride 108 H (98-107) mmol/L Carbon Dioxide 22 (22-32) mmol/L BUN 13 (7-17) mg/dL Creatinine 1.05 H (0.52-1.04) mg/dL Estimated GFR > 60 (>60) mL/min BUN/Creatinine Ratio 12.4 (6-22) Glucose 89 (70-100) mg/dL Calcium 8.9 (8.4-10.2) mg/dL Total Bilirubin 0.3 (0.2-1.3) mg/dL AST 22 (14-36) IU/L ALT 19 (<35) IU/L Alkaline Phosphatase 98 (38-126) U/L Total Creatine Kinase 67 (30-135) U/L CK-MB (CK-2) TNP CK-MB (CK-2) Rel Index TNP Troponin I < 0.012 (0.01-0.034) ng/mL Total Protein 7.9 (6.3-8.2) g/dL Albumin 4.1 (3.5-5.0) g/dL Globulin 3.8 (1.7-4.1) g/dL Albumin/Globulin Ratio 1.1 (1.0-2.8) Lipase 164 (23-300) U/L Urine Dip Bedside Urine Glucose Negative Bedside Urine Bilirubin - Negative Bedside Urine Ketone + 15 Urine Specific [place] 1.010 Bedside Urine Occult Blood - Negative Bedside Urine pH 6.0 Bedside Urine Protein - Negative Bedside Urine Urobilinogen 0.2 Bedside Urine Nitrite - Negative Bedside Urine Leukocytes - Negative Esterase Point of care testing: Urine Dip Bedside Urine Glucose Negative Bedside Urine Bilirubin - Negative Bedside Urine Ketone + 15 Urine Specific [place] 1.010 Bedside Urine Occult Blood - Negative Bedside Urine pH 6.0 Bedside Urine Protein - Negative Bedside Urine Urobilinogen 0.2 Bedside Urine Nitrite - Negative Bedside Urine Leukocytes - Negative Esterase Imaging Data Chest x-ray: Radiologist's Impression: PROCEDURE:? XR CHEST 1V ? INDICATIONS:? Shortness of breath ? TECHNIQUE:? One view of the chest was acquired.? ? COMPARISON:? [facility], CR, XR CHEST 1V, 01/26/2023, 16:08.? [facility], CR, XR CHEST 1V, 08/25/2020, 19:24. ? FINDINGS:? ? Surgical changes and devices:? Atrial septal occluded device. ? Lungs and pleura:? Lungs are clear.? No pleural effusions or pneumothorax.? ? Mediastinum:? Mediastinal contours appear normal.? Heart size is normal.? ? Bones and chest wall:? No suspicious bony lesions.? Overlying soft tissues appear unremarkable.? ? IMPRESSION:? No acute cardiopulmonary abnormality. ECG Data Attestation: I personally reviewed and interpreted this ECG as follows: Interpretation: Sinus rhythm Ventricular rate is 60 Normal axis Normal QRS No ST T wave changes MDM Narrative Medical decision making narrative: Patient was seen here couple days ago with a diagnosis of rhino virus. She reports that the symptoms have worsened. Chest x-ray is unremarkable. Low suspicion for ACS. Low suspicion for pulmonary embolism. No indication for antibiotics. Patient ambulated around the emergency department without becoming hypoxic. She was somewhat tachypneic. Provided reassurance to the patient. Was sent home with Adarsh to attempted symptom control. Advised that she contact her primary doctor for follow-up. She expressed understanding and agreement. Discharge Plan Departure Patient Disposition: Home Clinical Impression: Rhinovirus, Shortness of Breath Instructions: DI for Cough -- Adult, How to Manage Shortness of Breath Activity Restrictions/Additional Instructions: I do recommend that you continue to do the cough and cold preparations like we discussed. Contact your primary doctor for a follow-up. Return to the emergency department for worsening symptoms been Prescriptions: New benzonatate 100 mg capsule 100 mg PO BID-TID PRN (Reason: cough) Qty: 12 0RF Referrals: Bailey Gonzales ARNP [Primary Care Provider] - Stand Alone Forms: Patient Portal/API
--- NOTE | 2023-01-29 10:29 | DI.RAD.S_ITS ---
PROCEDURE: XR CHEST 1V INDICATIONS: Shortness of breath TECHNIQUE: One view of the chest was acquired. COMPARISON: [facility], JERI, XR CHEST 1V, 01/26/2023, 16:08. [facility], CR, XR CHEST 1V, 08/25/2020, 19:24. FINDINGS: Surgical changes and devices: Atrial septal occluded device. Lungs and pleura: Lungs are clear. No pleural effusions or pneumothorax. Mediastinum: Mediastinal contours appear normal. Heart size is normal. Bones and chest wall: No suspicious bony lesions. Overlying soft tissues appear unremarkable. IMPRESSION: No acute cardiopulmonary abnormality. Dictated by: Faizan Johnson M.D. on 01/29/2023 at 12:02 Approved by: Faizan Johnson M.D. on 01/29/2023 at 12:03
[2023-01-29 10:44] LABS: Add Manual Diff / Slide Review NO; Basophils Absolute Auto 100 /uL (0-100); Basophils Percent Auto 1.2 % (0-2); Eosinophils Absolute Auto 200 /uL (0-450); Eosinophils Percent Auto 3.1 % (2-4); Hematocrit 35.8 % (36-46); Hemoglobin 12.1 g/dL (12.0-16.0); Lymphocytes Absolute Auto 2100 /uL (1100-4500); Lymphocytes Percent Auto 31.4 % (25-40); Mean Corpuscular HGB Conc 33.7 % (30-36); Mean Corpuscular Hemoglobin 27.5 PG (26-34); Mean Corpuscular Volume 81.6 fL (80-100); Monocytes Absolute Auto 600 /uL (0-900); Monocytes Percent Auto 9.6 % (3-14); Neutrophils Absolute Auto 3700 /uL (1500-7000); Neutrophils Percent Auto 54.7 % (50-75); Platelet Count 340 X10^3/uL (150-400); Red Blood Cell Count 4.39 X10^6/uL (4.0-5.2); Red Cell Distribution Width 13.9 % (11.6-14.8); White Blood Cell Count 6.7 X10^3/uL (4.5-11.0)
[2023-01-29 10:56] LABS: Alanine Aminotransferase 19 IU/L (<35); Albumin 4.1 g/dL (3.5-5.0); Albumin Globulin Ratio 1.1 (1.0-2.8); Alkaline Phosphatase 98 U/L (38-126); Aspartate Aminotransferase 22 IU/L (14-36); BUN Creatinine Ratio 12.4 (6-22); Bilirubin Total 0.3 mg/dL (0.2-1.3); Blood Urea Nitrogen 13 mg/dL (7-17); Calcium 8.9 mg/dL (8.4-10.2); Carbon Dioxide 22 mmol/L (22-32); Chloride 108 mmol/L (98-107); Creatine Kinase 67 U/L (30-135); Estimated Glomerular Filt Rate > 60 mL/min (>60); Globulin 3.8 g/dL (1.7-4.1); Glucose 89 mg/dL (70-100); HEMOLYSIS < 15 (0-50); Lipase 164 U/L (23-300); Potassium 3.5 mmol/L (3.4-5.1); Sodium 138 mmol/L (137-145); Total Protein 7.9 g/dL (6.3-8.2)
[2023-01-29 11:08] LABS: Troponin I < 0.012 ng/mL (0.01-0.034)
[2023-01-29 12:31] LABS: D Dimer 397 ng/ml (<500)
== END 2023-01-29 13:46 | disposition home or self-care (01) ==
PROVIDERS: Emergency Provider Emergency Medicine; Family Provider Family Medicine; PCP Family Medicine
DX: B34.8 Other viral infections of unspecified site (principal); R06.02 Shortness of breath; R07.9 Chest pain, unspecified
CPT/HCPCS: 36415; 71045; 80053; 81003; 82550; 83690; 84484; 85025; 85379; 93005; 99283; 99284

== ENCOUNTER 2023-02-03 07:30 | Outpatient (RCR) | payer OTHER, SELFPAY ==
--- NOTE | 2022-12-12 16:12 | PT.OIE ---
Current Diagnoses Overactive bladder (12/12/22) Pelvic and perineal pain (12/12/22) Visit Care Team Role Provider Type SHELBY Mcallister Attending Provider Physician Family Provider Primary Care Provider Referring Provider Specialty: Nursing [address]: [address] [place] [address], [place], [address] Email: Physical Therapy Initial Evaluation PT-OP-A Visit Information Start: 12/10/22 15:39 Freq: Status: Active Protocol: Document 12/12/22 09:05 AMB (Rec: 12/12/22 09:45 AMB [id number]) Out-Patient Physical Therapy Visit Information Visit Information Visit Type Initial Evaluation Visit Start Time 09:00 Visit Stop Time 09:45 Total Visit Minutes 45 Visit Number 1 PT-OP-B Current Condition Start: 12/10/22 15:39 Freq: Status: Active Protocol: Document 12/12/22 09:05 AMB (Rec: 12/12/22 09:45 AMB [id number]) Current Condition History of Current Condition Onset Date 15 years Current Complaints urgency/frequency History of Current Condition Developed frequency and urgency after hysterectomy and oophorectomy. Bladder cramping after urination. Stops once from [facility] to [facility]. Moving from sit to stand, when bladder is full causes a medium leak. No childbirth history. Triggers include running water and moving from sit to stand. Doesn't drink a lot of water, but does go frequently. Treatment Goals Patient/Caregiver Goals reduce leaking, frequency urge Personal Factors Other Personal Factors That May Effect gallbladder, R knee, L knee Therapy/Recovery surgeries. PT-OP-C Subjective Start: 12/10/22 15:39 Freq: Status: Active Protocol: Document 12/12/22 09:00 AMB (Rec: 12/12/22 13:02 AMB [id number]) Patient Questionnaires Pelvic Pain and Urgency/Frequency Patient Symptom Scale Pelvic Pain Score 14 PT-OP-I Pelvic Floor Start: 12/10/22 15:39 Freq: Status: Active Protocol: Document 12/12/22 09:05 AMB (Rec: 12/12/22 09:45 AMB [id number]) Pelvic Floor Assessment Urine Pelvic Floor Surgery No Urinary Symptoms Urge Sensation Leakage Size Small Leakage Cause Urge Other Leakage Causes water, standing up Leaks Per Day 2-4 Voiding Frequency 1-2hrs Nocturia 2 Urine Pad Type Panty Liner Perineal Descent Resting Absent Bearing Absent Contraction Ability Voluntary Contraction Weak Voluntary Relaxation Weak Manual Muscle Testing Left 2 Manual Muscle Testing Right 2 Manual Muscle Testing Anterior 2 Manual Muscle Testing Posterior 2 Muscle Endurance (Seconds) 4 Number of Quick Contractions In 10 3 Seconds Comments Pelvic Floor Comments no significant tension palpated, generally weak, no prolapse noted in supine PT-OP-T Assessment and Plan Start: 12/10/22 15:39 Freq: Status: Active Protocol: Document 12/12/22 09:00 AMB (Rec: 12/15/22 16:12 AMB [id number]) Physical Therapy Assessment Rehab Potential Rehabilitation Potential Good Evaluation Complexity Number of Personal Factors/Comorbidities 1-2 Number of Body Systems Impaired 1-2 Clinical Presentation at Evaluation Stable Impairments Impairments Functional Activities,Strength Goals Two Impairment Urgency/frequency Short Term Goal (STG) Yessica will be able to wait 2-3 hours between voids. STG Duration 5 weeks Multimedia Manager Goal (LTG) Yessica will calmly walk to the bathroom without needing to mathews or leaking. LTG Duration 10 weeks One Impairment Continence Short Term Goal (STG) Yessica will move from sit to stand without leaking. STG Duration 5 Retirement Goal (LTG) Yessica show improved pelvic floor strength by holding a contraction for 10 seconds in standing. LTG Duration 10 Assessment Summary Assessment Yessica attends physical therapy with urinary urgency and frequency that has been present for 15 years after her hysterectomy and oophorectomy . She has been taking medication to manage sx for that time and while that worked the medication is expensive and she would prefer not to take it if she doesn't have to. Her pelvic floor was quite weak and she was challenged by philippe for more than a few seconds. She will benefit from physical therapy for both instruction in urge reduction and improvement in her pelvic floor strength to reduce her leaking and frequency. Physical Therapy Plan Frequency and Duration Frequency of Treatment 1x/Week Duration of treatment (weeks) 10 Plan of Care Start Date 12/12/22 Plan of Care End Date 02/20/23 Therapeutic Interventions Therapeutic Interventions Home Exercise Program,Manual Therapy,Neuromuscular Re- education,Self-Care/Home Management,Therapeutic Activities,Therapeutic Exercises Modalities Biofeedback,Electric Stimulation Next Visit Focus/Plan Next Note Type Treatment Note Next Visit Plan Review urge reduction handout, consider sEMG for strengthening
--- NOTE | 2022-12-12 16:12 | PT.OPPOC ---
Physical, Occupational & Speech Therapy At [facility] Current Diagnoses Overactive bladder (12/12/22) Pelvic and perineal pain (12/12/22) Visit Care Team Role Provider Type SHELBY Mcallister Attending Provider Physician Family Provider Primary Care Provider Referring Provider Specialty: Nursing Address: [address] [place] [address], [id number] Email: Plan Of Care PT-OP-T Assessment and Plan Start: 12/10/22 15:39 Freq: Status: Active Protocol: Document 12/12/22 09:00 AMB (Rec: 12/15/22 16:12 AMB [id number]) Physical Therapy Assessment Rehab Potential Rehabilitation Potential Good Evaluation Complexity Number of Personal Factors/Comorbidities 1-2 Number of Body Systems Impaired 1-2 Clinical Presentation at Evaluation Stable Impairments Impairments Functional Activities,Strength Goals Two Impairment Urgency/frequency Short Term Goal (STG) Yessica will be able to wait 2-3 hours between voids. STG Duration 5 weeks Jail Goal (LTG) Yessica will calmly walk to the bathroom without needing to mathews or leaking. LTG Duration 10 weeks One Impairment Continence Short Term Goal (STG) Yessica will move from sit to stand without leaking. STG Duration 5 Jail Goal (LTG) Yessica show improved pelvic floor strength by holding a contraction for 10 seconds in standing. LTG Duration 10 Assessment Summary Assessment Yessica attends physical therapy with urinary urgency and frequency that has been present for 15 years after her hysterectomy and oophorectomy . She has been taking medication to manage sx for that time and while that worked the medication is expensive and she would prefer not to take it if she doesn't have to. Her pelvic floor was quite weak and she was challenged by philippe for more than a few seconds. She will benefit from physical therapy for both instruction in urge reduction and improvement in her pelvic floor strength to reduce her leaking and frequency. Physical Therapy Plan Frequency and Duration Frequency of Treatment 1x/Week Duration of treatment (weeks) 10 Plan of Care Start Date 12/12/22 Plan of Care End Date 02/20/23 Therapeutic Interventions Therapeutic Interventions Home Exercise Program,Manual Therapy,Neuromuscular Re- education,Self-Care/Home Management,Therapeutic Activities,Therapeutic Exercises Modalities Biofeedback,Electric Stimulation Next Visit Focus/Plan Next Note Type Treatment Note Next Visit Plan Review urge reduction handout, consider sEMG for strengthening Plan of Care Dates Plan of Care Start Date 12/12/22 Plan of Care End Date 02/20/23 Electronically Signed by: Carmelita Michelle, PT 12/15/22 [id number] If you are in agreement with this Plan of Care, please return a signed and dated copy. I have reviewed this Plan of Care and certify that the skilled therapy services above are required to meet the patient?s needs. Physician Signature Date Printed Name and Credentials Clinical Instructor Signature Printed Name and Credentials
--- NOTE | 2023-01-27 07:52 | PT-OP ANOTE ---
Pt was in the ER yesterday, has been unwell for the past week. Pt no showed today.
--- NOTE | 2023-02-03 08:33 | PT.OTN ---
Current Diagnoses Overactive bladder (02/03/23) Pelvic and perineal pain (02/03/23) Physical Therapy Treatment Note PT-OP-A Visit Information Start: 12/10/22 15:39 Freq: Status: Active Protocol: Document 02/03/23 07:34 AMB (Rec: 02/03/23 08:32 AMB [id number]) Out-Patient Physical Therapy Visit Information Visit Information Visit Type Treatment Note Visit Start Time 07:30 Visit Stop Time 08:15 Total Visit Minutes 45 Visit Number 2 PT-OP-B Current Condition Start: 12/10/22 15:39 Freq: Status: Active Protocol: Document 12/12/22 09:05 AMB (Rec: 12/12/22 09:45 AMB [id number]) Current Condition History of Current Condition Onset Date 15 years Current Complaints urgency/frequency History of Current Condition Developed frequency and urgency after hysterectomy and oophorectomy. Bladder cramping after urination. Stops once from [place] to [place]. Moving from sit to stand, when bladder is full causes a medium leak. No childbirth history. Triggers include running water and moving from sit to stand. Doesn't drink a lot of water, but does go frequently. Treatment Goals Patient/Caregiver Goals reduce leaking, frequency urge Personal Factors Other Personal Factors That May Effect gallbladder, R knee, L knee Therapy/Recovery surgeries. PT-OP-C Subjective Start: 12/10/22 15:39 Freq: Status: Active Protocol: Document 02/03/23 07:34 AMB (Rec: 02/03/23 08:32 AMB [id number]) OP-PT Subjective Patient Comments Patient Comments Pt states she has been sick, had almost a uti. Noticing significant improvement in sx states life changing PT-OP-I Pelvic Floor Start: 12/10/22 15:39 Freq: Status: Active Protocol: Document 12/12/22 09:05 AMB (Rec: 12/12/22 09:45 AMB [id number]) Pelvic Floor Assessment Urine Pelvic Floor Surgery No Urinary Symptoms Urge Sensation Leakage Size Small Leakage Cause Urge Other Leakage Causes water, standing up Leaks Per Day 2-4 Voiding Frequency 1-2hrs Nocturia 2 Urine Pad Type Panty Liner Perineal Descent Resting Absent Bearing Absent Contraction Ability Voluntary Contraction Weak Voluntary Relaxation Weak Manual Muscle Testing Left 2 Manual Muscle Testing Right 2 Manual Muscle Testing Anterior 2 Manual Muscle Testing Posterior 2 Muscle Endurance (Seconds) 4 Number of Quick Contractions In 10 3 Seconds Comments Pelvic Floor Comments no significant tension palpated, generally weak, no prolapse noted in supine PT-OP-Q Treatments Start: 12/10/22 15:39 Freq: Status: Active Protocol: Document 02/03/23 07:34 AMB (Rec: 02/03/23 08:32 AMB [id number]) Therapeutic Exercises Sitting Exercises roll in roll out Reps/Minutes 2x10 Other Exercises urge reduction Other Exercise Name discussed timing of voids, pt consuming lots of water Comments D-manose for UTI PT-OP-T Assessment and Plan Start: 12/10/22 15:39 Freq: Status: Active Protocol: Document 02/03/23 07:34 AMB (Rec: 02/03/23 08:32 AMB [id number]) Physical Therapy Assessment Goals Two Impairment Urgency/frequency Short Term Goal (STG) Yessica will be able to wait 2-3 hours between voids. STG Duration MET Taxi Cab Driver Goal (LTG) Yessica will calmly walk to the bathroom without needing to mathews or leaking. LTG Duration MET One Impairment Continence Short Term Goal (STG) Yessica will move from sit to stand without leaking. STG Duration MET Taxi Cab Driver Goal (LTG) Yessica show improved pelvic floor strength by holding a contraction for 10 seconds in standing. LTG Duration MET Assessment Summary Assessment Yessica is doing well, she feels ready for d/c. She is still leaking at times, but this is mostly when she has waited a long time between voids. Discussed considering timed voids as pt has had to increase her fluid consumption due to migraine meds. Pt to follow up with PCP in one month if continuing to have sx . Physical Therapy Plan Frequency and Duration Frequency of Treatment 1x/Week Duration of treatment (weeks) 10 Plan of Care Start Date 12/12/22 Plan of Care End Date 02/20/23 Therapeutic Interventions Therapeutic Interventions Home Exercise Program,Manual Therapy,Neuromuscular Re- education,Self-Care/Home Management,Therapeutic Activities,Therapeutic Exercises Modalities Biofeedback,Electric Stimulation Next Visit Focus/Plan Next Note Type Treatment Note Next Visit Plan Review urge reduction handout, consider sEMG for strengthening
== END 2023-02-04 15:07 | disposition home or self-care (01) ==
LOC: PHYS 07:30
PROVIDERS: Family Provider Family Medicine; PCP Family Medicine; Referring Provider Family Medicine; Visit Provider Family Medicine
DX: N32.81 Overactive bladder (principal); R10.2 Pelvic and perineal pain
CPT/HCPCS: 97110; 97161

== ENCOUNTER → 2023-03-06 07:17 | Outpatient (CLI) | payer OTHER, SELFPAY ==
[2023-03-06 07:49] LABS: Add Manual Diff / Slide Review NO; Basophils Absolute Auto 100 /uL (0-100); Basophils Percent Auto 1.3 % (0-2); Eosinophils Absolute Auto 200 /uL (0-450); Eosinophils Percent Auto 3.2 % (2-4); Hematocrit 30.9 % (36-46); Hemoglobin 10.3 g/dL (12.0-16.0); Lymphocytes Absolute Auto 1700 /uL (1100-4500); Mean Corpuscular HGB Conc 33.4 % (30-36); Mean Corpuscular Hemoglobin 27.4 PG (26-34); Monocytes Absolute Auto 800 /uL (0-900); Monocytes Percent Auto 12.3 % (3-14); Neutrophils Absolute Auto 3700 /uL (1500-7000); Neutrophils Percent Auto 57.2 % (50-75); Platelet Count 314 X10^3/uL (150-400); Red Blood Cell Count 3.76 X10^6/uL (4.0-5.2); Red Cell Distribution Width 14.3 % (11.6-14.8); White Blood Cell Count 6.5 X10^3/uL (4.5-11.0)
[2023-03-06 08:02] LABS: Alanine Aminotransferase 17 IU/L (<35); Albumin Globulin Ratio 1.2 (1.0-2.8); Alkaline Phosphatase 80 U/L (38-126); Aspartate Aminotransferase 21 IU/L (14-36); BUN Creatinine Ratio 10.8 (6-22); Bilirubin Total 0.2 mg/dL (0.2-1.3); Blood Urea Nitrogen 12 mg/dL (7-17); Calcium 8.6 mg/dL (8.4-10.2); Carbon Dioxide 26 mmol/L (22-32); Chloride 103 mmol/L (98-107); Cholesterol 200 mg/dL (140-199); Estimated Glomerular Filt Rate 59 mL/min (>60); Globulin 3.3 g/dL (1.7-4.1); Glucose 89 mg/dL (70-100); HDL Cholesterol 53 mg/dL (40-60); HEMOLYSIS < 15 (0-50); LDL Cholesterol Calculated 122 mg/dL (<100); Lipase 127 U/L (23-300); Potassium 3.7 mmol/L (3.4-5.1); Sodium 136 mmol/L (137-145); Total Protein 7.3 g/dL (6.3-8.2); Triglycerides 124 mg/dL (35-150)
[2023-03-06 08:33] LABS: Ferritin 5 ng/mL (11-264)
== END ==
PROVIDERS: Family Provider Family Medicine; PCP Nurse Practitioner Family; Referring Provider Family Medicine; Visit Provider Family Medicine
DX: K86.89 Other specified diseases of pancreas (principal); E78.2 Mixed hyperlipidemia; D50.8 Other iron deficiency anemias; R79.0 Abnormal level of blood mineral
CPT/HCPCS: 36415; 80053; 80061; 82728; 83690; 85025

== ENCOUNTER → 2023-03-19 07:36 | Outpatient (CLI) | payer OTHER, SELFPAY ==
[2023-03-19 09:12] LABS: Add Manual Diff / Slide Review NO; Basophils Absolute Auto 100 /uL (0-100); Basophils Percent Auto 1.3 % (0-2); Eosinophils Absolute Auto 100 /uL (0-450); Hematocrit 31.9 % (36-46); Hemoglobin 10.3 g/dL (12.0-16.0); Lymphocytes Absolute Auto 1900 /uL (1100-4500); Lymphocytes Percent Auto 26.5 % (25-40); Mean Corpuscular HGB Conc 32.2 % (30-36); Mean Corpuscular Hemoglobin 26.1 PG (26-34); Mean Corpuscular Volume 80.9 fL (80-100); Monocytes Absolute Auto 800 /uL (0-900); Monocytes Percent Auto 11.4 % (3-14); Neutrophils Absolute Auto 4300 /uL (1500-7000); Neutrophils Percent Auto 58.8 % (50-75); Platelet Count 334 X10^3/uL (150-400); Red Blood Cell Count 3.94 X10^6/uL (4.0-5.2); Red Cell Distribution Width 14.2 % (11.6-14.8); White Blood Cell Count 7.3 X10^3/uL (4.5-11.0)
[2023-03-19 09:42] LABS: HEMOLYSIS < 15 (0-50); Iron 22 ug/dL (37-170)
[2023-03-19 09:53] LABS: Percent Iron Saturation 6 % (15-50); Total Iron Binding Capacity 398 ug/dL (265-497); Transferrin 281 mg/dL (206-381)
[2023-03-19 10:21] LABS: Ferritin 4 ng/mL (11-264)
== END ==
PROVIDERS: Family Provider Family Medicine; PCP Nurse Practitioner Family; Referring Provider Nurse Practitioner Family; Visit Provider Nurse Practitioner Family
DX: D50.9 Iron deficiency anemia, unspecified (principal); D50.8 Other iron deficiency anemias
CPT/HCPCS: 36415; 82728; 83540; 83550; 85025

== ENCOUNTER → 2023-04-09 08:01 | Outpatient (CLI) | payer OTHER, SELFPAY ==
[2023-04-09 10:21] LABS: Add Manual Diff / Slide Review NO; Basophils Absolute Auto 100 /uL (0-100); Basophils Percent Auto 1.3 % (0-2); Eosinophils Absolute Auto 100 /uL (0-450); Hemoglobin 11.7 g/dL (12.0-16.0); Lymphocytes Absolute Auto 1500 /uL (1100-4500); Lymphocytes Percent Auto 23.3 % (25-40); Mean Corpuscular HGB Conc 32.4 % (30-36); Mean Corpuscular Hemoglobin 25.8 PG (26-34); Mean Corpuscular Volume 79.8 fL (80-100); Monocytes Absolute Auto 800 /uL (0-900); Monocytes Percent Auto 11.4 % (3-14); Neutrophils Absolute Auto 4100 /uL (1500-7000); Platelet Count 362 X10^3/uL (150-400); Red Blood Cell Count 4.51 X10^6/uL (4.0-5.2); Red Cell Distribution Width 15.1 % (11.6-14.8); White Blood Cell Count 6.6 X10^3/uL (4.5-11.0)
[2023-04-09 10:35] LABS: HEMOLYSIS < 15 (0-50); Iron 214 ug/dL (37-170)
[2023-04-09 10:48] LABS: Percent Iron Saturation 61 % (15-50); Total Iron Binding Capacity 353 ug/dL (265-497); Transferrin 252 mg/dL (206-381)
[2023-04-09 11:23] LABS: Ferritin 687 ng/mL (11-264)
== END ==
PROVIDERS: Family Provider Family Medicine; PCP Nurse Practitioner Family; Referring Provider Nurse Practitioner Family; Visit Provider Nurse Practitioner Family
DX: D50.9 Iron deficiency anemia, unspecified (principal)
CPT/HCPCS: 36415; 82728; 83540; 83550; 85025

== ENCOUNTER → 2023-05-13 07:48 | Outpatient (CLI) | payer OTHER, SELFPAY ==
[2023-05-13 08:34] LABS: HEMOLYSIS < 15 (0-50)
[2023-05-13 08:37] LABS: Iron 65 ug/dL (37-170)
[2023-05-13 08:42] LABS: Add Manual Diff / Slide Review NO; Basophils Absolute Auto 100 /uL (0-100); Basophils Percent Auto 1.1 % (0-2); Eosinophils Absolute Auto 100 /uL (0-450); Eosinophils Percent Auto 2.1 % (2-4); Hematocrit 40.4 % (36-46); Hemoglobin 13.4 g/dL (12.0-16.0); Lymphocytes Absolute Auto 1400 /uL (1100-4500); Lymphocytes Percent Auto 26.5 % (25-40); Mean Corpuscular HGB Conc 33.3 % (30-36); Mean Corpuscular Hemoglobin 27.4 PG (26-34); Mean Corpuscular Volume 82.3 fL (80-100); Monocytes Absolute Auto 600 /uL (0-900); Monocytes Percent Auto 10.7 % (3-14); Neutrophils Absolute Auto 3100 /uL (1500-7000); Neutrophils Percent Auto 59.6 % (50-75); Platelet Count 267 X10^3/uL (150-400); Red Cell Distribution Width 21.5 % (11.6-14.8); White Blood Cell Count 5.2 X10^3/uL (4.5-11.0)
[2023-05-13 08:49] LABS: Alanine Aminotransferase 17 IU/L (<35); Albumin 4.3 g/dL (3.5-5.0); Albumin Globulin Ratio 1.4 (1.0-2.8); Alkaline Phosphatase 82 U/L (38-126); Aspartate Aminotransferase 20 IU/L (14-36); BUN Creatinine Ratio 13.3 (6-22); Bilirubin Total 0.2 mg/dL (0.2-1.3); Blood Urea Nitrogen 15 mg/dL (7-17); Calcium 10.1 mg/dL (8.4-10.2); Carbon Dioxide 25 mmol/L (22-32); Chloride 105 mmol/L (98-107); Estimated Glomerular Filt Rate 57 mL/min (>60); Glucose 94 mg/dL (70-100); HEMOLYSIS < 15 (0-50); Potassium 3.7 mmol/L (3.4-5.1); Sodium 139 mmol/L (137-145); Total Protein 7.3 g/dL (6.3-8.2)
[2023-05-13 08:53] LABS: Percent Iron Saturation 23 % (15-50); Total Iron Binding Capacity 280 ug/dL (265-497); Transferrin 209 mg/dL (206-381)
[2023-05-13 09:23] LABS: Anisocytosis 1+
[2023-05-14 17:06] LABS: Hep C Virus Ab w/Reflex Quant NEGATIVE s/c (NEGATIVE)
== END ==
PROVIDERS: Family Provider Family Medicine; PCP Nurse Practitioner Family; Referring Provider Nurse Practitioner Family; Visit Provider Nurse Practitioner Family
DX: D50.9 Iron deficiency anemia, unspecified (principal); Z11.59 Encounter for screening for other viral diseases
CPT/HCPCS: 36415; 80053; 83540; 83550; 85025; 86803

== ENCOUNTER 2024-08-31 11:30 | Outpatient (RCR) | payer OTHER, SELFPAY ==
--- NOTE | 2024-08-15 13:02 | OT.OP.EVAL ---
Visit Care Team Role Provider Type SHELBY Regalado, peoplesoft programmer Provider Advanced Dispatcher Ship Pilot Specialty: Emergency Medicine Address: [address] [place], [address] Email: [email or web address] SHELBY Mcallister Family Provider Physician Specialty: Nursing Address: [address] [place], [address] Email: Jasper Loyola MD Attending Provider Non-Staff Referring Provider Specialty: Family Practice Address: [address] [place] [address], [id number] Email: Occupational Therapy Initial Evaluation OT Outpatient Adult Evaluation Start: 08/15/24 12:36 Freq: Status: Active Protocol: Document 08/15/24 12:37 AMS (Rec: 08/15/24 12:55 AMS [id number]) General Information - Adult Plan of Care Dates 08/15/24 - 10/10/24 Insurance Information Prime Visit Start Time 11:30 Visit Stop Time 12:00 Treatment Setting Outpatient Care Note Type Initial Evaluation Reason for Referral 2# weight lifting restrictions per patient Precautions Referral: R thumb ligament reconstruction w/ tendon interposition (completed on ). Referral for OT to begin 10-14 days post-op, 2 x per week for 6 weeks, w/ home exercise program/strengthening exercises. Identification Confirmed Yes Identification Confirmed By Self Goals Fci Goals 1. Yessica will be modified independent with execution of home exercise program utilizing written and/or visual instructions as needed. 2. Yessica will be able to actively oppose R thumb to each digit pad of the R hand x 5 cycles without complaints of pain and/or discomfort. 3. Yessica will present with decreased pain/discomfort of the R thumb; this will be evidenced by indication of 4 or less out of 10 on the Pain Assessment Grid relative to the R thumb. Assessment/Plan Treatment Assessment Yessica was referred to outpatient OT secondary to R thumb ligament reconstruction w/ tendon interposition. Referral for OT to begin 10-14 days post-op, 2 x per week for 6 weeks, w/ home exercise program/strengthening exercises. Surgery was completed on 07/27/24; cast was removed 08/12/24; she was given [id number] splint to wear at all times. She reports having a 2# weight lifting precaution; she can get wrist/hand wet on 08/19/24. She was instructed to work on thumb opposition to each digit and wrist AROM; nausea presents w/ active wrist flexion (as of 08/14/24) . 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 Medical history is significant for surgery: R shoulder surgery, R knee surgery x 3, R partial knee replacement, L knee, jaw surgery, gallbladder surgery, pancreas surgery, PFO closure, hysterectomy. Indicated 8 out of 10 on the pain scale relative to the R thumb. AROM Measurements: 0-8 degrees active R wrist UD; 0-9 degrees active R wrist [address]; 0- 18 degrees active R wrist flexion; 0-35 degrees active R wrist extension; 0-43 degrees active IPJ flexion; 0-28 degrees active radial thumb abd; 0-25 degrees active palmar radial thumb abduction. 0-15 degrees active thumb MPJ flexion. Full R thumb adduction. Unable to oppose thumb to any digits. Decreased active flexion of MP joints of 2-5; WFL AROM of PIP and DIP joints of digits 2-5 of R hand. (-) edema observed in digits 2-5. Length of treatment (weeks) 8 Plan of Care Start Date 08/15/24 Plan of Care End Date 10/10/24 Treatment Frequency Twice a Week Therapeutic Contents Active Range of Motion, Adaptive Equipment Education, Functional Activities,Home Exercise Program,Joint Protection,Manual Therapy, Neurodevelopment Treatment, Neuromuscular Re-Education, Self-Care,Therapeutic Activities,Therapeutic Exercises,Modalities Modalities As Needed,As Prescribed Additional Types of Modalities Heat/Ice/Contrast Baths/ Paraffin Bath/Ultrasound
--- NOTE | 2024-08-18 15:41 | OT.OP.TRT ---
Visit Care Team Role Provider Type SHELBY Regalado, log grader Provider Advanced Patrol Man Specialty: Emergency Medicine Address: [address] [place], [address] Email: [email or web address] SHELBY Mcallister Family Provider Physician Specialty: Nursing Address: [address] [place], [address] Email: Jasper Loyola MD Attending Provider Non-Staff Referring Provider Specialty: Family Practice Address: [address] [place] [address], [id number] Email: Occupational Therapy Treatment Note OT Outpatient Treatment Note - Adult Start: 08/15/24 12:36 Freq: Status: Active Protocol: Document 08/18/24 15:32 AMS (Rec: 08/18/24 15:41 AMS [id number]) OT Outpatient Adult Treatment Note Session Time Visit Start Time 11:35 Visit Stop Time 12:05 Visit Information Plan of Care Dates 08/15/24 - 10/10/24 Insurance Information Prime Setting Treatment Setting Outpatient Care Visit Type Note Type Treatment Note General Information General Information Referral: R thumb ligament reconstruction w/ tendon interposition (completed on ). Referral for OT to begin 10-14 days post-op, 2 x per week for 6 weeks, w/ home exercise program/strengthening exercises. Was seen 19 days post-op. - Subjective Observations Yessica reports difficult past couple of days. Inquiry re: weight lifting restrictions. Patient/Caregiver Compliance with Home Good Exercise Program - Objective Objective Measurements Please refer to below for progress towards meeting established OT goals: Cask Maker Goals 1. Yessica will be modified independent with execution of home exercise program utilizing written and/or visual instructions as needed. 2. Yessica will be able to actively oppose R thumb to each digit pad of the R hand x 5 cycles without complaints of pain and/or discomfort. 3. Yessica will present with decreased pain/discomfort of the R thumb; this will be evidenced by indication of 4 or less out of 10 on the Pain Assessment Grid relative to the R thumb. - Exercises 3 Descriptor Thumb ROM. Lat galeano pinch. Towel. 3 x 10. Thumb slides. Side of 2nd digit. 3 x 10. AAROM thumb flex/ext. Forearms in neutral. 3 x 10. Joint blocking. Active flex/ ext. Thumb IPJ. 3 x 10. Joint blocking. Active flex/ ext. Thumb MPJ. 3 x 10. 2 Descriptor AROM. Fingers. Thumb. Piano taps. Towel. 3 x 10. Towel scrunches. 3 x 10. 1 Descriptor AROM. Wrist. Wrist flex/extension. Forearm in neutral position. Use of towel. [address]/UD. Forearm pronation . Use of towel. 3 x 10. Wrist circumduction 180 degrees. Forearm pronation. 3 x 10. - Assessment Assessment of Improvement Yessica arrived w/ current brace . Inquiry about weight lifting restrictions. Able to oppose thumb to DIPJ of 2nd digit; thus, slight improvement w/ AROM w/ thumb opposition. Rec advancing exercises as tolerated. - Plan Therapy Recommendations Advance per Rehabilitation Protocol
--- NOTE | 2024-08-22 12:39 | OT.OP.TRT ---
Visit Care Team Role Provider Type SHELBY Regalado, commercial credit officer Provider Advanced Bookbinder Apprentice Specialty: Emergency Medicine Address: [address] [place], [address] Email: [email or web address] SHELBY Mcallister Family Provider Physician Specialty: Nursing Address: [address] [place], [address] Email: Jasper Loyola MD Attending Provider Non-Staff Referring Provider Specialty: Family Practice Address: [address] [place] [address], [id number] Email: Occupational Therapy Treatment Note OT Outpatient Treatment Note - Adult Start: 08/15/24 12:36 Freq: Status: Active Protocol: Document 08/22/24 12:35 AMS (Rec: 08/22/24 12:39 AMS [id number]) OT Outpatient Adult Treatment Note Session Time Visit Start Time 11:35 Visit Stop Time 12:05 Visit Information Plan of Care Dates 08/15/24 - 10/10/24 Insurance Information Prime Setting Treatment Setting Outpatient Care Visit Type Note Type Treatment Note General Information General Information Referral: R thumb ligament reconstruction w/ tendon interposition (completed on ). Referral for OT to begin 10-14 days post-op, 2 x per week for 6 weeks, w/ home exercise program/strengthening exercises. Was seen 19 days post-op. - Subjective Observations Yessica reports difficult past couple of days; reports intermittent removal of splint ; recommend contacting hand surgeon for rec wearing schedule. Report of needing to take muscle relaxer only when coming into the clinic; thus, modified exercises. Patient/Caregiver Compliance with Home Good Exercise Program - Objective Objective Measurements Please refer to below for progress towards meeting established OT goals: Long-Term Goals 1. Yessica will be modified independent with execution of home exercise program utilizing written and/or visual instructions as needed. 2. Yessica will be able to actively oppose R thumb to each digit pad of the R hand x 5 cycles without complaints of pain and/or discomfort. 3. Yessica will present with decreased pain/discomfort of the R thumb; this will be evidenced by indication of 4 or less out of 10 on the Pain Assessment Grid relative to the R thumb. - Exercises 3 Descriptor Thumb ROM. Thumb slides. Side of 2nd digit. 1 x 10. Thumb opposition w/ foam ball. 1 x 10. Joint blocking. Active flex/ ext. Thumb IPJ. 1 x 10. Joint blocking. Active flex/ ext. Thumb MPJ. 1 x 10. N/A 08/22/24 Lat galeano pinch. Towel. 3 x 10. AAROM thumb flex/ext. Forearms in neutral. 3 x 10. 2 Descriptor AROM. Fingers. Thumb. Piano taps. Towel. 2 x 10. N/A 08/22/24 Towel scrunches. 3 x 10. 1 Descriptor AROM. Wrist. Wrist flex/extension. Forearm in neutral position. Use of towel. [address]/UD. Forearm pronation . Use of towel. 1 x 10. Wrist circumduction 180 degrees. Forearm pronation. 1 x 10. - Assessment Assessment of Improvement Yessica arrived w/ current brace donned. Reports intermittent removal of splint. Recommend contacting hand surgeon for rec wearing schedule/lifting precautions. Report of needing to take muscle relaxer only when coming into the clinic; thus, modified exercises. Reduced sets of all exercises. Will need to follow-up at next appointment re: tolerance. Able to oppose thumb to pad of 2nd digit; thus, slight improvement w/ AROM w/ thumb opposition. - Plan Therapy Recommendations Advance per Rehabilitation Protocol
--- NOTE | 2024-08-31 14:38 | OT.OP.DC ---
Visit Care Team Role Provider Type SHELBY Regalado, pharmacy coordinator Provider [employer] Address: [address] [place], [address] Email: [email or web address] SHELBY Mcallister Family Provider Physician Address: [address] [place], [address] Email: Jasper Loyola MD Attending Provider Non-Staff Referring Provider Address: [facility] [place], [address] Email: OT Outpatient OT Outpatient Adult Evaluation Start: 08/15/24 12:36 Freq: Status: Active Protocol: Document 08/15/24 12:37 AMS (Rec: 08/15/24 12:55 AMS [id number]) General Information - Adult Visit Information Plan of Care Dates 08/15/24 - 10/10/24 Insurance Information Prime Session Time Visit Start Time 11:30 Visit Stop Time 12:00 Setting Treatment Setting Outpatient Care Visit Type Note Type Initial Evaluation Referral Reason for Referral 2# weight lifting restrictions per patient Precautions Referral: R thumb ligament reconstruction w/ tendon interposition (completed on ). Referral for OT to begin 10-14 days post-op, 2 x per week for 6 weeks, w/ home exercise program/strengthening exercises. 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 Yessica will be modified independent with execution of home exercise program utilizing written and/or visual instructions as needed. 2. Yessica will be able to actively oppose R thumb to each digit pad of the R hand x 5 cycles without complaints of pain and/or discomfort. 3. Yessica will present with decreased pain/discomfort of the R thumb; this will be evidenced by indication of 4 or less out of 10 on the Pain Assessment Grid relative to the R thumb. Assessment/Plan Assessment Treatment Assessment Yessica was referred to outpatient OT secondary to R thumb ligament reconstruction w/ tendon interposition. Referral for OT to begin 10-14 days post-op, 2 x per week for 6 weeks, w/ home exercise program/strengthening exercises. Surgery was completed on 07/27/24; cast was removed 08/12/24; she was given [id number] splint to wear at all times. She reports having a 2# weight lifting precaution; she can get wrist/hand wet on 08/19/24. She was instructed to work on thumb opposition to each digit and wrist AROM; nausea presents w/ active wrist flexion (as of 08/14/24) . 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 Medical history is significant for surgery: R shoulder surgery, R knee surgery x 3, R partial knee replacement, L knee, jaw surgery, gallbladder surgery, pancreas surgery, PFO closure, hysterectomy. Indicated 8 out of 10 on the pain scale relative to the R thumb. AROM Measurements: 0-8 degrees active R wrist UD; 0-9 degrees active R wrist RD; 0- 18 degrees active R wrist flexion; 0-35 degrees active R wrist extension; 0-43 degrees active IPJ flexion; 0-28 degrees active radial thumb abd; 0-25 degrees active palmar radial thumb abduction. 0-15 degrees active thumb MPJ flexion. Full R thumb adduction. Unable to oppose thumb to any digits. Decreased active flexion of MP joints of 2-5; WFL AROM of PIP and DIP joints of digits 2-5 of R hand. (-) edema observed in digits 2-5. Plan Length of treatment (weeks) 8 Plan of Care Start Date 08/15/24 Plan of Care End Date 10/10/24 Treatment Frequency Twice a Week Therapeutic Contents Active Range of Motion, Adaptive Equipment Education, Functional Activities,Home Exercise Program,Joint Protection,Manual Therapy, Neurodevelopment Treatment, Neuromuscular Re-Education, Self-Care,Therapeutic Activities,Therapeutic Exercises,Modalities Modalities As Needed,As Prescribed Additional Types of Modalities Heat/Ice/Contrast Baths/ Paraffin Bath/Ultrasound Functional Wrist/Hand Scan Hand Side Sensory Assessment Sensory Profile2 OT Outpatient Treatment Note - Adult Start: 08/15/24 12:36 Freq: Status: Active Protocol: Document 08/31/24 14:34 AMS (Rec: 08/31/24 14:38 AMS [id number]) OT Outpatient Adult Treatment Note Session Time Visit Start Time 11:30 Visit Stop Time 12:00 Visit Information Plan of Care Dates 08/15/24 - 10/10/24 Insurance Information [facility] Treatment Setting Outpatient Care Visit Type Note Type Treatment Note General Information General Information Referral: R thumb ligament reconstruction w/ tendon interposition (completed on ). Referral for OT to begin 10-14 days post-op, 2 x per week for 6 weeks, w/ home exercise program/strengthening exercises. Was seen 19 days post-op. - Subjective Observations Yessica reports that her PCP has given her a new referral to see a CHT. 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 Yessica will be modified independent with execution of home exercise program utilizing written and/or visual instructions as needed. 2. Yessica will be able to actively oppose R thumb to each digit pad of the R hand x 5 cycles without complaints of pain and/or discomfort. 08/31/24 = opposing to 4th digit 3. Yessica will present with decreased pain/discomfort of the R thumb; this will be evidenced by indication of 4 or less out of 10 on the Pain Assessment Grid relative to the R thumb. - Exercises 3 Descriptor Thumb ROM. Thumb slides. Side of 2nd digit. 2 x 10. Thumb opposition w/ foam ball. 2 x 10. Joint blocking. Active flex/ ext. Thumb IPJ. 2 x 10. Joint blocking. Active flex/ ext. Thumb MPJ. 2 x 10. N/A 08/22/24 Lat galeano pinch. Towel. 3 x 10. AAROM thumb flex/ext. Forearms in neutral. 3 x 10. 2 Descriptor AROM. Fingers. Thumb. Piano taps. Towel. 2 x 10. N/A 08/22/24 Towel scrunches. 3 x 10. 1 Descriptor AROM. Wrist. Wrist flex/extension. Forearm in neutral position. Use of towel. [address]/UD. Forearm pronation . Use of towel. 2 x 10. Wrist circumduction 180 degrees. Forearm pronation. 1 x 10. - Assessment Assessment of Improvement Yessica reported that she is no longer taking any pain medications; site of surgery is almost healed; ~1/2-inch scab remains. Yessica recently saw her PCP who recommended that she see a CHT; thus, Yessica to be d/c from outpatient OT here at this clinic so that she can see a CHT. She has a follow-up with her hand surgeon the following 09/05/24. - Plan Therapy Recommendations Advance per Rehabilitation Protocol,Discharge from Occupational Therapy
== END 2024-09-22 12:22 | disposition home or self-care (01) ==
LOC: OT 11:30
PROVIDERS: Family Provider Family Medicine; PCP Nurse Practitioner Family
DX: M13.841 Other specified arthritis, right hand (principal); Z98.890 Other specified postprocedural states
CPT/HCPCS: 97110; 97165

== ENCOUNTER → 2024-09-29 11:50 | Outpatient (CLI) | payer OTHER, SELFPAY ==
[2024-09-29 12:46] LABS: Influenza A - CEPHEID Flu A NEGATIVE (NEGATIVE); Influenza B - CEPHEID Flu B NEGATIVE (NEGATIVE); Respiratory Syncytial Virus Negative (Negative)
[2024-09-29 12:47] LABS: COVID-19 CEPHEID 4-PLEX PCR Negative (Negative)
== END ==
PROVIDERS: Family Provider Family Medicine; PCP Nurse Practitioner Family; Visit Provider Nurse Practitioner Family
DX: R05.1 Acute cough (principal)
CPT/HCPCS: 0241U

== ENCOUNTER → 2024-12-18 13:53 | Outpatient (CLI) | payer OTHER, SELFPAY ==
[2024-12-18 14:42] LABS: Influenza A - CEPHEID Flu A NEGATIVE (NEGATIVE); Influenza B - CEPHEID Flu B NEGATIVE (NEGATIVE); Respiratory Syncytial Virus Negative (Negative)
[2024-12-18 14:43] LABS: COVID-19 CEPHEID 4-PLEX PCR Negative (Negative)
== END ==
PROVIDERS: Family Provider Family Medicine; Visit Provider Physician Assistant Surgical
DX: R19.7 Diarrhea, unspecified (principal); R05.9 Cough, unspecified
CPT/HCPCS: 0241U

== ENCOUNTER → 2024-12-24 10:02 | Outpatient (CLI) | payer OTHER, SELFPAY ==
--- NOTE | 2024-12-24 10:03 | DI.RAD.S_ITS ---
PROCEDURE: XR CHEST 2V INDICATIONS: Shortness of breath TECHNIQUE: 2 views of the chest were acquired. COMPARISON: [facility], , XR CHEST 1V, 01/29/2023, 10:43. FINDINGS: Surgical changes and devices: There is an occlusion device seen overlying the right heart. Cholecystectomy clips are seen. Lungs and pleura: Lungs are clear. No pleural effusions or pneumothorax. Mediastinum: Mediastinal contours are normal. Heart size is normal. Bones and chest wall: No suspicious bony abnormalities. Mild levoconvex scoliotic curvature is noted. Soft tissues appear unremarkable. IMPRESSION: Clear lungs. Postoperative changes noted. Dictated by: Abraham Mcguire M.D. on 12/24/2024 at 9:24 Approved by: Abraham Mcguire M.D. on 12/24/2024 at 9:26
== END ==
LOC: RAD 10:03
PROVIDERS: Family Provider Family Medicine; Referring Provider Registered Nurse; Visit Provider Registered Nurse
DX: R06.02 Shortness of breath (principal)
CPT/HCPCS: 71046

== ENCOUNTER → 2025-05-08 14:13 | Outpatient (CLI) | payer OTHER, SELFPAY ==
--- NOTE | 2025-05-08 14:15 | DI.CT.S_ITS ---
PROCEDURE: CT KIDNEY URETER BLADDER (KUB) INDICATIONS: R/O KIDNEY STONE TECHNIQUE: Axial sections were acquired from the lung bases to the pubic symphysis. Coronal and sagittal reformats were performed. For radiation dose reduction, the following was used: automated exposure control, adjustment of mA and/or kV according to patient size. COMPARISON: None. FINDINGS: Image quality: Diagnostic. Lower Chest: Lung bases are clear. Small hiatal hernia. Heart size is normal. URINARY: Right Kidney: No stones or hydronephrosis. Right Ureter: No ureteral stone or hydroureter. Left Kidney: Nonobstructing left renal stones measuring up to 3 mm. No hydronephrosis. No perinephric stranding. Left Ureter: No ureteral stone or hydroureter. Bladder: Normal wall thickness. No stones. ABDOMEN: Liver: No contour-deforming solid mass. Gallbladder: Surgically absent Biliary ducts: No biliary dilation. Pancreas: No ductal dilation. Spleen: Size is within normal limits. Adrenal Glands: No adrenal nodules. Stomach and Bowel: Normal colonic caliber, without significant wall thickening. No evidence for small bowel obstruction or associated inflammatory changes. Normal appendix. Moderate fecal burden seen throughout the colon. Peritoneum: No abnormal intraperitoneal fluid. No free air. Ventral Wall: There is a fat-containing umbilical hernia without acute inflammation. Abdominal Nodes: No enlarged retroperitoneal or mesenteric lymph nodes. Vessels: Aorta and inferior vena cava are normal in size. PELVIS: Pelvic Organs: Unremarkable. Pelvic Nodes: Unremarkable. Miscellaneous: No inguinal hernias are seen. Bones: Unremarkable. Visualized osseous structures appear intact without acute fracture or focal destructive lesion. No acute compression fractures of the imaged spine. IMPRESSION: Nonobstructing left renal stones measuring up to 3 mm in size. No hydronephrosis or perinephric stranding. Otherwise, no acute abnormalities identified in the abdomen or pelvis. Other chronic/non-acute findings as above. Dictated by: Jayce Aj M.D. on 05/08/2025 at 14:35 Approved by: Jayce Aj M.D. on 05/08/2025 at 14:44
== END ==
LOC: CT 14:14
PROVIDERS: Family Provider Family Medicine
DX: R10.9 Unspecified abdominal pain (principal); N20.0 Calculus of kidney; K44.9 Diaphragmatic hernia without obstruction or gangrene; Z90.49 Acquired absence of other specified parts of digestive tract
CPT/HCPCS: 74176

== ENCOUNTER → 2025-07-12 11:45 | Outpatient (CLI) | payer OTHER, SELFPAY ==
[2025-07-12 17:24] LABS: Add Manual Diff / Slide Review NO; Hematocrit 41.2 % (36-46); Hemoglobin 14.0 g/dL (12.0-16.0); Lymphocytes Absolute Auto 2100 /uL (1100-4500); Mean Corpuscular HGB Conc 33.9 % (30-36); Mean Corpuscular Hemoglobin 30.0 PG (26-34); Mean Corpuscular Volume 88.3 fL (80-100); Platelet Count 260 X10^3/uL (150-400)
[2025-07-12 17:46] LABS: Hemoglobin A1C% w Est Avg Glu 5.4 % (4.0-6.0)
[2025-07-12 17:53] LABS: Alanine Aminotransferase 18 IU/L (<35); Albumin 4.4 g/dL (3.5-5.0); Albumin Globulin Ratio 1.3 (1.0-2.8); Alkaline Phosphatase 75 U/L (38-126); Blood Urea Nitrogen 20 mg/dL (7-17); Calcium 9.6 mg/dL (8.4-10.2); Carbon Dioxide 27 mmol/L (22-32); Chloride 104 mmol/L (98-107); Estimated Glomerular Filt Rate 58 mL/min (>60); Globulin 3.3 g/dL (1.7-4.1); Glucose 85 mg/dL (70-99); HEMOLYSIS < 15 (0-50); Sodium 138 mmol/L (137-145); Total Protein 7.7 g/dL (6.3-8.2)
[2025-07-12 18:24] LABS: Thyroid Stimulating Hormone 2.83 uIU/mL (0.47-4.68)
[2025-07-12 19:53] LABS: Potassium 3.7 mmol/L (3.4-5.1)
== END ==
PROVIDERS: Family Provider Family Medicine
DX: R20.2 Paresthesia of skin (principal)
CPT/HCPCS: 36415; 80053; 83036; 84155; 84165; 84443; 85025; 85651